=== PATIENT | female | born 1970 | race Caucasian/White ===

== ENCOUNTER → 2020-06-02 16:56 | Outpatient (CLI) | payer OTHER, SELFPAY ==
--- NOTE | ~2020-06-02 | MM_ITS ---
EXAMINATION: MM screening [facility] w gaye HISTORY: Screening TECHNIQUE: Craniocaudal and mediolateral oblique 3-D tomosynthesis images were obtained and synthetic 2-D images were generated. CAD analysis was submitted and interpreted. COMPARISON: Comparison to multiple prior studies sequentially, with oldest reviewed study dated 05/19. BREAST PARENCHYMAL COMPOSITION: There are scattered areas of fibroglandular density. FINDINGS: There is no evidence of suspicious mass, calcification, or architectural distortion to sugg est malignancy in either breast. There has been no suspicious interval change. IMPRESSION: 1. No mammographic evidence of malignancy. 2. Recommend routine screening mammography in one year. BI-RADS Category 1: Negative Reviewed, dictated and finalized at location A.
== END ==
PROVIDERS: PCP Family Medicine Adolescent Medicine; Visit Provider Nurse Practitioner Obstetrics & Gynecology
DX: Z12.31 Encounter for screening mammogram for malignant neoplasm of breast (principal)
CPT/HCPCS: 77063; 77067

== ENCOUNTER → 2021-09-01 15:54 | Outpatient (CLI) | payer OTHER, SELFPAY ==
--- NOTE | ~2021-09-01 | MM_ITS ---
EXAMINATION: MM screening [facility] w gaye HISTORY: Screening mammogram TECHNIQUE: Craniocaudal and mediolateral oblique 3-D tomosynthesis images were obtained and synthetic 2-D images were generated. CAD analysis was submitted and interpreted. COMPARISON: 06/02/2020 bilateral screening mammogram 05/07/2019 diagnostic left mammogram 04/18/2019, 09/27/2017 bilateral screening mammogram examinations BREAST PARENCHYMAL COMPOSITION: There are scattered areas of fibroglandular density. FINDINGS: There is no evidence of suspicious mass, calcification, or architectural distortion to sugg est malignancy in either breast. There has been no suspicious interval change. IMPRESSION: 1. No mammographic evidence of malignancy. 2. Recommend routine screening mammography in one year. BI-RADS Category 1: Negative Reviewed, dictated and finalized at location A. 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
== END ==
PROVIDERS: PCP Family Medicine Adolescent Medicine; Visit Provider Nurse Practitioner Obstetrics & Gynecology
DX: Z12.31 Encounter for screening mammogram for malignant neoplasm of breast (principal)
CPT/HCPCS: 77063; 77067

== ENCOUNTER → 2022-12-30 15:07 | Outpatient (CLI) | payer OTHER, SELFPAY ==
--- NOTE | ~2022-12-30 | MR_ITS ---
EXAMINATION: MR knee LT wo con DATE: 12/30/2022 15:42 INDICATION: Left knee meniscal tear with chronic medial left knee pain TECHNIQUE: Magnetic resonance imaging (MRI) of the left knee was performed without intravenous contra st. Sequences included coronal PD-weighted FSE, coronal PD-weighted FS FSE, sagittal T2-weighted FSE , sagittal PD-weighted FS FSE and axial PD weighted fat saturated FSE. COMPARISON: None. FINDINGS: Medial compartment: Complex medial meniscal tear with radial tear extending through the inner two thirds of the body of t he medial meniscus and with longitudinal horizontal tear extending to the intra-articular surface etelvina r the free edge of the posterior horn. Mild partial-thickness cartilage loss with some chondral surfa ce irregularity along the anterior to central weightbearing medial femoral condyle and anterior third of the medial tibial plateau. Lateral compartment: Complex lateral meniscal tear with tear plane extending to contact both the superior and inferior art icular surface at the meniscal body and with longitudinal oblique tear plane stenting across the domitila pheral inferior corner of the posterior body and lateral side of the posterior horn of the meniscus. Deep chondral ulceration with minimal underlying edema-like signal change along the posterior margin of the lateral tibial plateau. Patellofemoral compartment: Articular cartilage is normal. Ligaments and tendons: Anterior and posterior cruciate ligaments are normal. The medial collateral ligament and fibular salome ateral ligament complex are normal. The extensor mechanism is normal. The visualized medial and later al hamstring tendons as well as the iliotibial band are normal. Fluid: Small left knee joint effusion. No loose osteochondral bodies identified. Osseous/other: Bone alignment is normal. No fracture or pathologic marrow replacing process. IMPRESSION: 1. 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 Reviewed, dictated and finalized at location B.
== END ==
PROVIDERS: Visit Provider Physician Assistant
DX: S83.242A Other tear of medial meniscus, current injury, left knee, initial encounter (principal); X58.XXXA Exposure to other specified factors, initial encounter
CPT/HCPCS: 73721

== ENCOUNTER → 2023-01-06 09:54 | Outpatient (CLI) | payer OTHER, SELFPAY ==
--- NOTE | ~2023-01-06 | MM_ITS ---
EXAMINATION: MM screening [facility] BI w gaye HISTORY: Screening mammogram TECHNIQUE: Craniocaudal and mediolateral oblique 3-D tomosynthesis images were obtained and synthetic 2-D images were generated. CAD analysis was submitted and interpreted. COMPARISON: 09/01/2021, 06/02/2020, 05/07/2019, 04/18/2019 BREAST PARENCHYMAL COMPOSITION: There are scattered areas of fibroglandular density. FINDINGS: No suspicious mass, calcification, or architectural distortion are identified in either tin ast to suggest malignancy. There has been no suspicious interval change. IMPRESSION: 1. No mammographic evidence of malignancy. 2. Recommend routine screening mammography in one year. BI-RADS Category 1: Negative Reviewed, dictated and finalized at location A.
== END ==
PROVIDERS: PCP Family Medicine Adolescent Medicine; Visit Provider Nurse Practitioner Obstetrics & Gynecology
DX: Z12.31 Encounter for screening mammogram for malignant neoplasm of breast (principal)
CPT/HCPCS: 77063; 77067

== ENCOUNTER 2024-01-29 10:25 | Outpatient (CLI) | payer OTHER, SELFPAY ==
--- NOTE | ~2024-01-29 | MM_ITS ---
EXAMINATION: MM screening [facility] w gaye HISTORY: Screening TECHNIQUE: Craniocaudal and mediolateral oblique 3-D tomosynthesis images were obtained and synthetic 2-D images were generated. CAD analysis was submitted and interpreted. COMPARISON: Comparison to multiple prior studies sequentially, with oldest reviewed study dated 09/27. BREAST PARENCHYMAL COMPOSITION: Not dense: There are scattered areas of fibroglandular density. FINDINGS: There is no evidence of suspicious mass, calcification, or architectural distortion to sugg est malignancy in either breast. There has been no suspicious interval change. IMPRESSION: 1. No mammographic evidence of malignancy. 2. Recommend routine screening mammography in one year. BI-RADS Category 1: Negative Reviewed, dictated and finalized at location B.
== END 2024-01-29 10:26 ==
LOC: MICIMG 10:27
PROVIDERS: Visit Provider Nurse Practitioner Obstetrics & Gynecology
DX: Z12.31 Encounter for screening mammogram for malignant neoplasm of breast (principal)
CPT/HCPCS: 77063; 77067

== ENCOUNTER 2025-03-18 11:40 | Outpatient (CLI) | payer OTHER, SELFPAY ==
--- NOTE | ~2025-03-18 | MM_ITS ---
EXAMINATION: screening [facility] BI w gaye INDICATION: Asymptomatic, referred for screening mammogram COMPARISON: 01/29/2024 through 09/27/2017 TECHNIQUE: Digital Breast Tomosynthesis CC, MLO views of Both breasts were obtained with computer-ai ded detection to assist in interpretation of the study. FINDINGS: There are scattered areas of fibroglandular density. There is an asymmetry seen on the cc view in the Medial right breast at posterior depth, centered at 8 cm posterior to the nipple. Elsewhere, there are no mammographic features of malignancy. IMPRESSION: 1. Right breast Asymmetry. 2. No evidence of malignancy in the Left breast. RECOMMENDATION: Right breast Diagnostic mammogram with true lateral, appropriate spot compression views and an ultras ound if needed. BI-RADS Category 0: Incomplete: Needs additional imaging evaluation. Reviewed, dictated and finalized at location B. IMPRESSION: 1. Right breast Asymmetry. 2. No evidence of malignancy in the Left breast. RECOMMENDATION: Right breast Diagnostic mammogram with true lateral, appropriate spot compressi on views and an ultrasound if needed. BI-RADS Category 0: Incomplete: Needs additional imaging evaluation.
--- OUTSIDE RECORDS SUMMARY | 2025-03-18 11:44 | XMS_ITS | Data Portability ---
Author Organization [facility] [place] Address [address] [place] [address] Care Team Providers Care Grounds Person Name Role Phone ISRRAEL HESS Primary Care Provider WESLEY LEYVA Primary Care Provider Assessment Encounter Date Assessment Date Assessment LastModified by Organization Details LastModified Time 07/15/2020 07/15/2020 Annual gynecological exam performed. Patient will come back in a year unless there are new symptoms. [email or web address] Not available 07/15/2020 11:00:18 08/24/2021 08/24/2021 Annual gynecological exam performed. Patient will come back in a year unless there are new symptoms. Not available 08/24/2021 13:22:30 09/19/2022 09/19/2022 Annual gynecological exam performed. Patient will come back in a year unless there are new symptoms. Not available 09/19/2022 11:57:17 09/26/2023 09/26/2023 Annual gynecological exam performed. Patient will come back in a year unless there are new symptoms. [email or web address] Not available 09/26/2023 11:29:07 10/09/2024 10/09/2024 Annual gynecological exam performed. Patient will come back in a year unless there are new symptoms. Not available 10/04/2024 11:24:39 Plan of Treatment Reminders Order Date Submit Date Provider Last Modified By Organization Details Last Modified Time Details Appointments None recorded. Lab pap, IG + HR HPV - HPV regardless but if HPV is positive need subtyping 16,18/45 2024 025 [facility] (Lab), [address], [place], [address], 5 01:46:10 Referral None recorded. Procedures None recorded. Surgeries None recorded. Imaging MAMMO, screening, digital, bilateral 2024 025 [facility], [address], [facility] [address], [place], [address], 5 04:11:45 MAMMO, screening, bilateral [email or web address] [facility], [address], [facility] [address], [place], [address], 4 17:39:35 MAMMO, screening, bilateral 2022 023 [facility], [address], [facility], [place], [address], 3 15:01:48 Medication Orders estradiol 1 mg tablet 2024 025 [facility], [address] [place], [place], [id number], 5 09:21:30 estradiol 1 mg tablet [email or web address] [facility] #04737, [address] [place], [place], [id number], 3 12:20:13 estradiol 1 mg tablet 2020 021 [facility] #52246, [address], [place], [id number], 1 13:39:34 estradiol 1 mg tablet 2019 020 [facility] #00997, [address], [place], [place], [id number], 0 12:22:11 Patient TargetsNo targets recorded. Patient InstructionsNo instructions recorded. Reason for Referral None Reported. Results Created Date Observation Date Name Description Value Unit Range Abnormal Flag Note LastModifiedBy Organization Detail LastModifiedTime 07/15/20 20 07/20/2020 pap, LB Pap test thin prep Negati ve for Intrae pithel ial Lesion or Malign herman normal ACCES LUCY #: [id number] Sourc e: Cervi jess/E ndoce rvica l LMP: 08/28 Date Taken : 07/15 Speci men Type: ThinP rep Vial Date Repor anneliese: 07/20 Clini jess Data: Cytot ech: Georgie Macdonald CT (ASCP ) Date Repor anneliese: 07/19 Revie wed By: PORSHA Smith am( CP) Speci men Adequ acy: Satis facto ry for evalu ation Endoc ervic al/tr ansfo rmati on zone compo nent prese nt Gener al Categ oriza tion: NEGAT DARELL FOR INTRA EPITH ELIAL LESIO N OR MALIG VANESA This speci men has been ana zed by the ThinP rep Imagi ng Syste m, an inter activ e compu ter syste m which chloe ts the lab in the scree karel of ThinP rep Pap Test slide s. Follo wing imagi ng, the slide was revie wed by a Cytot echno logis t and/o r Patho logis t. D N A A S S A Y S R E P O R T TEST NAME RESUL TS ----- ---- ----- -- HPV High Risk Scree n (TMA) ThinP rep Vial The human papil lomav irus (HPV) High Risk Scree n is an FDA-a pprov ed in-vi tro ampli fied nucle ic acid test for the quali tativ e detec tion of E6/E7 viral mRNA. Resul ts shoul d be corre lated with patie nt prese ntati on, histo ry, cervi jess cytol ogy and other clini jess and labor atory findi ngs. See https ://[employer]/s ites/ defau lt/fi les 018-0 3/AW- 10094 _002_ 01.pd f for kavya zacarias n. Test perfo rmed by [facility], [address], [place] [address] , Edi Mesa ra, DO, [facility] tor. HPV High Risk *HPV NOT DETEC ANNELIESE (TYPE S 16, 18, 31, 33, 35, 39, 45, 51, 52, 56, 58, 59, 66, 68) *HPV: The human papil lomav irus (HPV) High Risk Joan payne is an FDA-a pprov ed in-vi tro ampli fied nucle ic acid test for the quali tativ e detec tion of E6/E7 viral mRNA. [facility] larissa d be corre lated with santi an prese ntati on, histo ry, cervi jess cytol ogy and other clini jess and labor atory findi ngs. See https ://[employer]/s ites/ defau lt/fi / 018-0 3/AW- 55288 _002_ 01.pd f for kavya zacarias n. Test perfo rmed by [facility], [address], [place] [address] , Edi Mesa ra, DO, [facility] tor. End of Repor t Techn ical servi álvaro provi ded by [facility] [facility], [address] [place] [address] Rodrigo Young MD, [facility]. Case revie wed and diagn osis rende red at [facility] [facility], [address] [place] [address] Rodrigo Young MD, Labor ge [facility] tor. CONFI DENTI AL Not Available [facility] ([facility]) [address], [place], [address], 07/20/2020 09:15:32 07/15/20 20 07/20/2020 HPV DNA, high- risk HPV high risk NOT DETECT ED normal Not Available [facility] ([facility]) [address], [place], [address], 07/20/2020 09:15:32 08/24/20 21 08/24/2021 IMAGE GUIDE D PAP AND HPV REGAR DLESS image guided Pap, HPV regardless of Pap result SEE RESULT S BELOW CASE REPOR T: Cytol ogy Gynec ologi jess Repor t Case: [id number] Autho lazaro ike Provi mari: Everardo Wayne Colle cted: 08/24 1657 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 FINAL DIAGN OSIS: Negat darell for Intra epith elial Lesthai n or Angel miller (NIL) . Shift in kostas sugge stive of bacte rial vagin osis. Elect shane sevilla d by Mary Keita, CT on 022 at 12:25 PM ----- ----- ----- ----- ----- ----- ----- ----- ----- ----- ----- ----- ----- ----- ----- ----- ----- ---- HPV RESUL TS: HPV mRNA E6/E7 : No HPV mRNA Detec anneliese NOTE: This high risk HPV mRNA assay detec ts fourt een high- risk HPV types (16, 18, 31, 33, 35, 39, 45, 51, 52, 56, 58, 59, 66, 68) witho ut diffe renti ation . COMME NT: Note: This speci men was revie wed by a Cytot echno logis t and/o r Patho logis t (as indic ated in this repor t) after evalu ation using the Thinp rep Imagi ng Syste m. CLINI JESS INFOR MATIO N: Menst rual Statu s: LMP (if appli cable ): Clini jess Histo ry/Pr eviou s Pap: Type of Neopl wilmer (if appli cable ): Signi fican t Clini jess Findi ngs: Other Histo ry: Hormo chao (if appli cable ): PAP EDUCA ZACH L NOTE: The Pap Test is a scree karel test with an inher ent false negat darell rate. Liqui d-bas e sampl ing may decre ase, but will not elimi macario, false negat darell resul ts. A negat darell resul t does not precl ude the prese nce and/o r devel opmen t of disea se, since the prese nce of abnor mal cells in the sampl e depen ds on the locat ion of the lesio n and sampl ing techn ique. Olivia nued regul ar scree karel is the best metho d of cance r preve ntion . If repor anneliese cytol ogic findi ng do not corre late with physi jess and/o r histo rical findi ngs, furth er inves tigat ion is recom stan d, as clini malinda keyes nted. 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 The absen ce of an endoc ervic al compo nent was confi rmed by an addit ional joan diana. FINAL DIAGN OSIS: Negat darell for Intra epith elial Lesthai payne or Angel miller (NIL) . Funga l organ isms morph ologi malinda consi stent with Xiomy da spp. Elect shane baldwin roel d by Cliff Knight on 2022 at 1:19 PM ----- ----- ----- ----- ----- ----- ----- ----- ----- ----- ----- ----- ----- ----- ----- ----- ----- ---- HPV RESUL TS: HPV mRNA E6/E7 : No HPV mRNA Detec anneliese NOTE: This high risk HPV mRNA assay detec ts fourt een high- risk HPV types (16, 18, 31, 33, 35, 39, 45, 51, 52, 56, 58, 59, 66, 68) witho ut diffe renti ation . COMME NT: Note: This speci men was revie wed by a Cytot echno logis t and/o r Patho logis t (as indic ated in this repor t) after evalu ation using the Thinp rep Imagi ng Syste m. CLINI JESS INFOR MATIO N: Menst rual Statu s: LMP (if appli cable ): Clini jess Histo ry/Pr eviou s Pap: Type of Neopl wilmer (if appli cable ): Signi fican t Clini jess Findi ngs: Other Histo ry: Hormo chao (if appli cable ): PAP EDUCA ZACH L NOTE: The Pap Test is a scree karel test with an inher ent false negat darell rate. Liqui d-bas ed sampl ing may decre ase, but will not elimi macario, false negat darell resul ts. A negat darell resul t does not precl ude the prese nce and/o r devel opmen t of disea se, since the prese nce of abnor mal cells in the sampl e depen ds on the locat ion of the lesio n and sampl ing techn ique. Olivia nued regul ar scree karel is the best metho d of cance r preve ntion . If repor anneliese cytol ogic findi ng do not corre late with physi jess and/o r histo rical findi ngs, furth er inves tigat ion is recom stan d, as clini malinda warra nted. Not Available [facility] (Lab) [address], [place], [address], 09/22/2022 14:21:42 09/19/19 23 09/19/2022 CT/GC (MIRA) , THINP REP VIAL chlamydia trachomatis, PCR NEGATI VE negati ve Not Available [facility] (Lab) [address] [place], [address], 09/22/2022 14:21:43 09/19/19 23 09/19/2022 CT/GC (MIRA) , THINP REP VIAL neisseria gonorrhoeae, PCR NEGATI VE negati ve Not Available [facility] (Lab) [address] [place], [address], 09/22/2022 14:21:43 09/19/19 23 09/19/2022 TRICH OMONA S VAGIN ANNA (RRNA ) trichomonas vaginalis ribosomal RNA (rrna) NEGATI VE negati ve Not Available [facility] (Lab) [address] [facility], [place], [address], 09/22/2022 14:21:43 09/26/19 24 09/26/2023 IMAGE GUIDE D PAP AND HPV REGAR DLESS image guided Pap, HPV regardless of Pap result SEE RESULT S BELOW CASE REPOR T: Cytol ogy Gynec ologi jess Repor t Case: [id number] Autho lazaro ramires Provi mari: Everardo Wayne Colle cted: 09/26 1617 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 Elect shane baldwin roel d by Anaya Garcia, CT on 024 at 10:09 AM ----- ----- ----- ----- ----- ----- ----- ----- ----- ----- ----- ----- ----- ----- ----- ----- ----- ---- HPV RESUL TS: HPV mRNA E6/E7 : No HPV mRNA Detec anneliese NOTE: This high risk HPV mRNA assay detec ts fourt een high- risk HPV types (16, 18, 31, 33, 35, 39, 45, 51, 52, 56, 58, 59, 66, 68) witho ut diffe renti ation . COMME NT: This speci men was revie wed by a Cytot echno logis t and/o r Patho logis t (as indic ated in this repor t) after evalu ation using the Thinp rep Imagi ng Syste m. CLINI JESS INFOR MATIO N: Menst rual Statu s: LMP (if appli cable ): Clini jess Histo ry/Pr eviou s Pap: Type of Neopl wilmer (if appli cable ): Signi fican t Clini jess Findi ngs: Other Histo ry: Hormo chao (if appli cable ): PAP EDUCA ZACH L NOTE: The Pap Test is a scree karel test with an inher ent false negat darell rate. Liqui d-bas ed sampl ing may decre ase, but will not elimi macario, false negat darell resul ts. A negat darell resul t does not precl ude the prese nce and/o r devel opmen t of disea se, since the prese nce of abnor mal cells in the sampl e depen ds on the locat ion of the lesio n and sampl ing techn ique. Olivia nued regul ar scree karel is the best metho d of cance r preve ntion . If repor anneliese cytol ogic findi ng do not corre late with physi jess and/o r histo rical findi ngs, furth er inves tigat ion is recom stan d, as clini malinda warrquintin nted. Not Available [facility] (Lab) [address] [facility], [place], [address], 09/28/2023 11:12:45 10/09/19 25 10/09/2024 IMAGE GUIDE D PAP AND HPV REGAR DLESS image guided Pap, HPV regardless of Pap result SEE RESULT S BELOW abnormal CASE REPOR T: Cytol ogy Gynec ologi jess Repor t Case: [id number] Autho lazaro g Provi mari: Dermo dy, Mary Beth , ANP, FUN HOUSE OPERATOR Colle cted: 10/09 0842 Order ing Locat ion: [place] Patho logy Recei stephanie: 10/10 0147 First Scree n: Michael Ortiz , CT Patho logis t: Davi carreon , Marlene Leonard MD Speci men: Scree karel Pap - Image d, Cervi x STATE MENT OF ADEQU ACY: Satis facto ry for evalu ation Trans forma tion zone compo nent prese nt ----- ----- ----- ----- ----- ----- ----- ----- ----- ----- ----- ----- ----- ----- ----- ----- ----- ---- FINAL DIAGN OSIS: Epith elial Cell Abnor malit y, Squam ous Cell: Atypi jess Squam ous Cells of Undet ermin ed Deya montgomery (ASC- [place]). Elect shane gunderson by Marlene carreon MD on 2024 at 1312 ROTOR CASTING MACHINE OPERATOR ----- ----- ----- ----- ----- ----- ----- ----- ----- ----- ----- ----- ----- ----- ----- ----- ----- ---- HPV RESUL TS: HPV mRNA E6/E7 : No HPV mRNA Detec anneliese NOTE: This high risk HPV mRNA assay detec ts fourt een high- risk HPV types (16, 18, 31, 33, 35, 39, 45, 51, 52, 56, 58, 59, 66, 68) witho ut diffe renti ation . COMME NT: This speci men was revie wed by a Cytot echno logis t and/o r Patho logis t (as indic ated in this repor t) after evalu ation using the Thinp rep Imagi ng Syste m. CLINI JESS INFOR MATIO N: Menst rual Statu s: LMP (if appli cable ): Clini jess Histo ry/Pr eviou s Pap: Type of Neopl wilmer (if appli cable ): Deya underwood Clini jess Findi ngs: Other Histo ry: Hormo chao (if appli cable ): ADY ALLEN FOLLO W-UP: Follo w up as hemalathaa nted, based on curre nt guide lines and indiv idual patie nt consi derat ions. Not Available [facility] (Lab) [address], [place], [address], 10/15/2024 01:46:10 09/02/19 22 09/01/2021 MAMMO , scree karel, bilat eral No observ ation record ed. [facility] [address], [place], [address], 09/08/2021 14:46:05 01/07/20 23 01/06/2023 MAMMO , scree karel, bilat eral No observ ation record ed. [email or web address] [facility] [address], [place], [address], 09/26/2023 11:52:30 01/29/20 24 01/29/2024 MAMMO , scree karel, bilat eral No observ ation record ed. [facility] [address], [place], [address], 10/15/2024 11:53:35 Result Notes None recorded. Problems Name Problem SNOMED Code Status Onset Date Resolution Date Notes Provider Name and Address Organization Details Recorded Time Screenin g for malignan t neoplasm of cervix Completed 201208/23/2021 Screening for malignant neoplasms of the cervix;Re corded Elsewhere : No Locati on: [facility] So urce: EHR Chron ic: N Practic e ID: 0001 Bill able Time: 04:45:00 PM Annika Sandoval [facility] 19:29:27 Uses oral contrace ption [id number] Completed 201208/23/2021 Surveilla nce of contracep tive pill;Mike rded Elsewhere : No Locati on: [facility] So urce: EHR Chron ic: N Practic e ID: 0001 Bill able Time: 04:15:00 PM Annika Sandoval [facility] 19:29:17 [facility] medical examinat ion Completed 201308/23/2021 Gynecolog ical Examinati on;Record ed Elsewhere : No Locati on: [facility] So urce: EHR Chron ic: N Practic e ID: 0001 Bill able Time: 03:00:00 PM Annika Sandoval [facility] 19:30:22 Adult health examinat ion Completed 201308/23/2021 ROUTINE MEDICAL EXAM;Mike rded Elsewhere : No Locati on: [facility] So urce: EHR Chron ic: N Practic e ID: 0001 Bill able Time: 03:00:00 PM Annika Sandoval [facility] 19:28:23 Vaginiti s and vulvovag initis Completed 201408/23/2021 Vaginitis ;Recorded Elsewhere : No Locati on: [facility] So urce: EHR Chron ic: N Practic e ID: 0001 Bill able Time: 10:00:00 AM Annika Sandoval [facility] 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 19:29:41 Finding of menstrua l bleeding Completed 201508/23/2021 Menorrhag ia;Record ed Elsewhere : No Locati on: [facility] So urce: EHR Chron ic: N Practic e ID: 0001 Bill able Time: 09:00:00 AM Annika Sandoval [facility] 19:28:56 Clinical finding Completed 201508/23/2021 Presence of (intraute rine) contracep tive device;Re corded Elsewhere : No Locati on: [facility] So urce: EHR Chron ic: N Practic e ID: 0001 Bill able Time: 09:30:00 AM Annika Sandoval [facility] 19:28:37 Contrace ptive sheath status [id number] Completed 201508/23/2021 Encounter for routine checking of intrauter ine contracep dev;Pract ice ID: 0001 Annika Sandoval [facility] 19:28:42 Disorder of intraute rine contrace ptive device Completed 201508/23/2021 [facility] compl of intrauter ine contracep tive device, init encntr;Pr actice ID: 0001 Annika Sandoval [facility] 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 19:30:07 Screenin g for malignan t neoplasm of rectum Completed 201508/23/2021 Encounter for screening for malignant neoplasm of rectum;Pr actice ID: 0001 Annika Sandoval [facility] 19:29:32 Body mass index 30+ - obesity [id number] Completed 201708/23/2021 Body mass index (BMI) 36.0-36.9 , adult;Rec orded Elsewhere : No Locati on: [facility] So urce: EHR Chron ic: N Practic e ID: 0001 Bill able Time: 01:30:00 PM Annika milligan [facility] 19:28:[address] Concept Completed 201708/23/2021 Encntr for general adult medical exam w/o abnormal findings; Recorded Elsewhere : No Locati on: [facility] So urce: EHR Chron ic: N Practic e ID: 0001 Bill able Time: 01:30:00 PM Annika Sandoval [facility] 19:29:36 Human papillom avirus deoxyrib onucleic acid detected , high risk on cervical specimen [id number] Completed 201808/23/2021 Cervical high risk HPV DNA test positive; Practice ID: 0001 Annika Sandoval [facility] 19:29:01 Insertio n of intraute rine contrace ptive device Completed 201808/23/2021 Encounter for insertion of intrauter ine contracep tive device;Pr actice ID: 0001 Annika [facility] 19:29:09 Pregnanc y test negative [id number] Completed 201808/23/2021 Encounter for test, result negative; Practice ID: 0001 Annika [facility] 19:29:21 Hypertro phy of uterus [id number] Completed 201808/23/2021 Hypertrop hy of uterus;Pr actice ID: 0001 Annika [facility] 19:29:05 Atypical squamous cells of undeterm ined signific ance on cervical Papanico laou smear [id number] Completed 201808/23/2021 Atyp squam cell of undet signfc cyto smr crvx (ASC-US); Recorded Elsewhere : No Locati on: [facility] So urce: EHR Chron ic: N Practic e ID: 0001 Bill able Time: 12:29:54 PM Annikamark Sandoval [facility] 19:28:28 Uterine leiomyom a [id number] Completed 201808/23/2021 Leiomyoma of uterus, unspecifi ed;Practi ce ID: 0001 Annika [facility] 19:30:11 Menopaus e present [id number] Completed 201808/23/2021 Menopausa l and female climacter ic states;Pr actice ID: 0001 Annika Sandoval [facility] 19:29:13 Elevated blood-pr essure reading without diagnosi s of hyperten lucy [id number] Completed 201808/23/2021 Elevated blood-pre ssure reading, w/o diagnosis of htn;Pract ice ID: 0001 Annika Sandoval [facility] 19:28:51 Problem Notes None recorded. Procedures Surgical History Date Name Laterality Status Provider Name and Address Organization Details Recorded Time 01/29/20 24 Date of Last Mammogram completed [facility] 10/04/2024 11:26:15 09/26/19 24 Date of Last Pap Smear completed [facility] 10/04/2024 11:25:39 05/06/20 19 Colposcopy completed [facility] 08/24/2021 11:57:44 04/05/20 19 Colposcopy completed [facility] 08/24/2021 13:23:30 08/28/19 16 Hysteroscopy completed [facility] 06/20/2020 10:05:04 08/28/19 11 Laparoscopy completed Veronika [facility] 06/20/2020 10:04:34 colonoscopy completed Nirmala Brady [facility]- [address], [place], [address], [facility] 09/19/2022 12:13:22 Imaging Results None recorded. Procedure Notes None recorded. Medical Equipment None Reported. Allergies No known drug allergies Medications Name Sig Start Date Stop Date Status Note LastModified by Organization Details LastModified Time celecoxib 200 mg capsule 09/26 completed Not Available Not Available Not Available amoxicill in 500 mg capsule TAKE 1 CAPSULE BY MOUTH THREE TIMES A DAY FOR 10 DAYS 10/04 completed Not Available Not Available Not Available Mirena 21 mcg/24 hr (up to 8 years) 52 mg intrauter ine device 2017 active Prescrib ed Elsewher e: Yes Loca tion: Zuly booth [facility] M odify By: trinidad melounter DateTime : 11/22/19 18 01:30:00 PM Not Available Not Available Not Available fluconazo le 150 mg tablet TAKE 1 TABLET BY MOUTH 1 TIME 09/26 completed Not Available Not Available Not Available hydrocodo ne 5 mg-acetam inophen 325 mg tablet 09/26 completed Not Available Not Available Not Available ondansetr on HCl 4 mg tablet 09/26 completed Not Available Not Available Not Available prednison e 20 mg tablet 09/26 completed Not Available Not Available Not Available metronida zole 500 mg tablet 09/26 completed Not Available Not Available Not Available phentermi ne 37.5 mg tablet TAKE 1 TABLET BY MOUTH ONCE DAILY 09/26 completed Not Available Not Available Not Available Vitamin C 500 mg chewable tablet 09/26 completed Not Available Not Available Not Available sulfameth oxazole 800 mg-trimet hoprim 160 mg tablet TAKE 1 TABLET BY MOUTH TWICE A DAY FOR 10 DAYS 10/04 completed Not Available Not Available Not Available aspirin 81 mg tablet,de layed release 09/26 completed Not Available Not Available Not Available alprazola m 0.5 mg tablet TAKE 1 TABLET (0.5 MG TOTAL) BY MOUTH 2 (TWO) TIMES A DAY NEEDED FOR ANXIETY. active Not Available Not Available No t Available Metrogel Vaginal 0.75 % (37.5 mg/5 gram) insert 1 applicat orful by vaginal route for 5 nights at bedtime 11/21 completed Prescrib ed Elsewher e: No Locat ion: [facility] odify By: trinidad Booth ncountneyda DateTime : 08/11/20 16 03:27:01 PM Not Available Not Available Not Available estradiol 1 mg tablet take 1 tablet daily 2024 active Not Available Not Available Not Avai lable sulfaceta mide sodium 10 % eye drops 08/24 completed Not Available Not Available Not Available polymyxin B sulfate 10,000 unit-trim ethoprim 1 mg/mL eye drops INSTILL 1 DROP IN BOTH EYES EVERY 4 HOURS WHILE AWAKE FOR 7 DAYS 09/26 completed Not Available Not Available Not Available Sleep Aid (diphenhy dramine) 50 mg capsule take 1 capsule by oral route every day at bedtime as needed 10/13 completed Prescrib ed Elsewher e: Yes Loca tion: [facility] odify By: trinidad Booth ncounter DateTime : 09/06/19 13 04:45:00 PM Not Available Not Available Not Available ergocalci ferol (vitamin D2) 1,250 mcg (50,000 unit) capsule TAKE 1 CAPSULE BY MOUTH 1 TIME A WEEK active Not Available Not Available No t Available Ambien 5 mg tablet 08/24 completed Not Available Not Available Not Available Xanax 1 mg tablet 09/19 completed Not Available Not Available Not Available Ortho Tri-Cycle n (28) 0.18 mg(7)/0.2 15mg(7)/0 .25 mg(7)-0.0 35 mg tablet TAKE 1 TABLET BY ORAL ROUTE EVERY DAY 10/12 completed Prescrib ed Elsewher e: No Locat ion: [facility] odify By: amknancy Booth ncounter DateTime : 07/16/20 08:30:00 AM Not Available Not Available Not Available amoxicill in 875 mg-potass ium clavulana te 125 mg tablet TAKE 1 TABLET BY MOUTH TWICE DAILY FOR 10 DAYS 09/26 completed Not Available Not Available Not Available zolpidem ER 12.5 mg tablet,ex tended release,m ultiphase TAKE 1 TABLET BY MOUTH NIGHTLY. active Not Available Not Available No t Available Ambien 08/24 completed Not Available Not Available Not Available Xanax 08/24 completed Not Available Not Available Not Available Vitamin D3 50 mcg (2,000 unit) capsule 09/26 completed Not Available Not Available Not Available desoximet asone 0.25 % topical spray APPLY TOPICALL Y TO THE AFFECTED AREA TWICE DAILY NEEDED FOR ECZEMA. RUB IN GENTLY AND COMPLETE LY 01/23 /2023 completed Not Available Not Available Not Available Stimulant Laxative Plus 8.6 mg-50 mg tablet 09/26 completed Not Available Not Available Not Available Mounjaro 7.5 mg/0.5 mL subcutane ous pen injector INJECT 7.5 MG UNDER THE SKIN EVERY WEEK FOR 4 WEEKS. THEN START 10 MG FOR 4 WEEKS 09/19 completed Not Available Not Available Not Available Mounjaro 5 mg/0.5 mL subcutane ous pen injector 09/19 completed Not Available Not Available Not Available Mounjaro 2.5 mg/0.5 mL subcutane ous pen injector INJECT 2.5MG UNDER THE SKIN ONCE A WEEK DIRECTED . 09/19 completed Not Available Not Available Not Available Zepbound 10 mg/0.5 mL subcutane ous pen injector INJECT 0.5 ML (10 MG TOTAL) UNDER THE SKIN EVERY 7 DAYS 10/04 completed Not Available Not Available Not Available Zepbound 2.5 mg/0.5 mL subcutane ous pen injector 09/26 completed Not Available Not Available Not Available Zepbound 12.5 mg/0.5 mL subcutane ous pen injector ADMINIST ER 12.5 MG UNDER THE SKIN EVERY 7 DAYS active Not Available Not Available No t Available Zepbound 7.5 mg/0.5 mL subcutane ous pen injector INJECT 7.5MG SUBCUTAN EOUSLY ONCE WEEKLY 10/04 completed Not Available Not Available Not Available Vitals Date Recorded Systolic And Diastolic Provider Name and Address Organization Details Last Updated DateTime 09/19/2022 120/74 mm[Hg] Nirmala Brady, [facility]- [address], [place], [address], [facility] 09/19/2022 12:12:05 Date Recorded Body weight Provider Name an d Address Organization Details Last Updated DateTime 09/19/2022 [id number] ike Burris [facility] 09/19/2022 11:57:30 Date Recorded Body height Body mass index (BMI) Body weight Systolic And Diastolic Provider Name and Address Organization Details Last Updated DateTime 09/26/2023 162.56 cm 39.5 kg/m2 077679.25 g 133/88 mm[Hg] Olinda John [facility] 09/26/2023 11:29:30 Date Recorded Body height Body mass index (BMI) Body weight Systolic And Diastolic Provider Name and Address Organization Details Last Updated DateTime 10/09/2024 162.56 cm 27.7 kg/m2 05927.81 g 136/85 mm[Hg] Missy Langley [facility] 10/09/2024 09:12:52 Date Recorded Systolic And Diastolic Provider Name and Address Organization Details Last Updated DateTime 07/15/2020 128/70 mm[Hg] Nirmala Brady, [facility] [address], [place], [address], [facility] 07/15/2020 12:13:47 Date Recorded Body height Body mass index (BMI) Body weight Provider Name and Address Organization Details Last Updated DateTime 07/15/2020 162.56 cm 34.5 kg/m2 21999.07 g Irina Riddle [facility] 07/15/2020 11:06:55 Date Recorded Systolic And Diastolic Provider Name and Address Organization Details Last Updated DateTime 08/24/2021 122/80 mm[Hg] Nirmala Brady, [facility] [address], [place], [address], [facility] 08/24/2021 13:48:10 Date Recorded Body height Body mass index (BMI) Body weight Provider Name and Address Organization Details Last Updated DateTime 08/24/2021 162.56 cm 36.6 kg/m2 61179.17 g Annika Sandoval [facility] 08/24/2021 13:23:02 Social History Question Answer Notes LastModified by Organizat ion Details LastModified Time Tobacco Smoking Status Former Smoker Annika milligan [facility] 09/19/2022 11:57:45 Do You Have An Advance Directive? No [email or web address] Information n ot available 08/24/2021 Are You Blind Or Do You Have Difficulty Seeing? No Information n ot available 08/23/2021 What Is Your Level Of Caffeine Consumption? Moderate Information not available 08/24/2021 How Much Tobacco Do You Chew? None Information not available 08/24/2021 In The 14 Days Before Symptom Onset, Have You Had Close Contact With A Laboratory-confirm ed COVID-19 While That Case Was Ill? No Information n ot available 09/19/2022 In The 14 Days Before Symptom Onset, Have You Had Close Contact With A Person Who Is Under Investigation For COVID-19 While That Person Was Ill? No Information not available 08/24/2021 Have You Been To An Area Known To Be High Risk For COVID-19? No Information not available 08/24/2021 Are You Deaf Or Do You Have Serious Difficulty Hearing? No Information not available 08/23/2021 What Type Of Diet Are You Following? REGULAR Information n ot available 08/23/2021 What Is The Highest Grade Or Level Of School You Have Completed Or The Highest Degree You Have Received? [id number] Information not available 08/24/2021 Are There Any Guns Present In Your Home? Yes Information not available 08/24/2021 Do You Use Protection During Sex? Always Information not available 08/24/2021 Do You Use Your Seat Belt Or Car Seat Routinely? No Information not available 08/24/2021 Do You Have Smoke And Carbon Monoxide Detectors In Your Home? Yes Information not available 08/23/2021 How Much Tobacco Do You Smoke? No Information not available 08/24/2021 Do You Use Sunscreen Routinely? Yes Information not available 08/23/2021 Have You Used IV Drugs? No Information not available 08/24/2021 Do You Have Difficulty Walking Or Climbing Stairs? No Information not available 09/19/2022 Sex: Unknown Functional Status Question Answer Note LastModified by Organizat ion Details LastModified Time Do you use any illicit or recreational drugs? No Information not available 08/24/2021 What is your level of alcohol consumption? Occasional Information not available 08/23/2021 Are you able to walk? YESWOREST Information not available 08/23/2021 Are you able to care for yourself? 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 No Information not available 09/19/2022 What is your exercise level? Moderate Information not available 08/23/2021 Mental Status Question Answer Note LastModified by Organization D etails LastModified Time Do you feel stressed (tense, restless, nervous, or anxious, or unable to sleep at night)? [id number] Information not available 08/23/2021 Family History Relationship Description Onset Age of this Age Resolved Age Notes LastModified by Organization Details LastModified Time Maternal Grandfather Hypertensive disorder [email or web address] Not available 06/20 10:03:17 Maternal Grandmother Malignant tumor of breast [email or web address] Not available 06/20 10:03:26 Paternal Grandmother Malignant neoplasm of lung [id number] Not available 06/20 10:03:37 Medical History Condition Response Anxiety Disorder Y History of STI Y History of abnormal pap Y Gynecological History Statement/Question Response Abnormal Pap Y Date of Last Mammogram 01/29/2024 HPV Vaccine N Colposcopy 05/06/2019 Current Control Method IUD Date of Last Colonoscopy Sexually Active? N Menses Monthly N Age of first menstrual cycle 13 Date of Last Pap Smear 09/26/2023 Sexual Problems? N LMP Unknown Obstetrics History GPAL:G 0 P 0 0 0 0 Type Value Living 0 Total 0 Past Encounters Encounter ID Performer Location Encounter Start Date Encounter Closed Date Diagnosis/Indication Diagnosis SNOMED-CT Code Diagnosis ICD10 Code Diagnosis Note [id number] Nirmala Brady [facility] [address] [address] 07/15/2020 10:54:51 07/15/2020 13:53:59 Gynecologic examination 07643473 Z01.419 Suggested Calcium with Vitamin D 1200-1500m g daily. Patient advised to get an annual flu shot in the fall and she could obtain at [facility] or [facility]. Also to obtain TDap vaccinatio n if you have not had one in the last 10 years. Recommend yearly mammograms . Encouraged monthly self breast exams. Encourage safe sexual practices, to use condoms and limit partners if not already in a monogamous relationsh ip. Engage in daily exercise of low impact aerobic exercise 45-60 minutes 4-5 times weekly. Avoid tobacco and illicit drugs as well as using moderation with alcohol intake less than 1-2 8 oz beverages daily. This lifestyle behavior pattern will lead to less health conditions and longer life span. If BMI greater than 25 weight watchers or dietary consult advised. All questions have been answered. Patient appears to understand informatio n, but if you have any questions please call or respond to this email. Pap hx abn Updated pap/hpv this year Doing well no issues. IUD check 038292612 Z30. 431 Strings visualized . Placed . Menopausal symptom 27130 002 N95.1 On estradiol 1mg daily with IUD mirena for uterine lining protection for hot flashes. [id number] Nirmala Brady , [facility] [address] [address] 08/24/2021 13:12:54 08/24/2021 13:58:57 Gynecologic examination 08789908 Z01.419 Suggested Calcium with Vitamin D 1200-1500m g daily. Patient advised to get an annual flu shot in the fall and she could obtain at [facility] or [facility]. Also to obtain TDap vaccinatio n if you have not had one in the last 10 years. Recommend yearly mammograms . Encouraged monthly self breast exams. Encourage safe sexual practices, to use condoms and limit partners if not already in a monogamous relationsh ip. Engage in daily exercise of low impact aerobic exercise 45-60 minutes 4-5 times weekly. Avoid tobacco and illicit drugs as well as using moderation with alcohol intake less than 1-2 8 oz beverages daily. This lifestyle behavior pattern will lead to less health conditions and longer life span. If BMI greater than 25 weight watchers or dietary consult advised. All questions have been answered. Patient appears to understand informatio n, but if you have any questions please call or respond to this email. Pap hx abn Updated pap/hpv this year Doing well no issues.Dec lined need std screen Not in a relationsh ip & not SA Colon screen UTD Mammo ordered Menopausal symptom 08793 002 N95.1 On estradiol 1mg daily with IUD mirena for uterine lining protection for hot flashes. [id number] Nirmala Brady [facility] [address] [address] 09/19/2022 11:37:45 09/19/2022 12:22:59 Gynecologic examination [id number] Z01.419 Z11.51 Suggested Calcium with Vitamin D 1200-1500m g daily. Patient advised to get an annual flu shot in the fall and she could obtain at [facility] or [facility] clinic. Also to obtain TDap vaccinatio n if you have not had one in the last 10 years. Recommend yearly mammograms . Encouraged monthly self breast exams. Encourage safe sexual practices, to use condoms and limit partners if not already in a monogamous relationsh ip. Engage in daily exercise of low impact aerobic exercise 45-60 minutes 4-5 times weekly. Avoid tobacco and illicit drugs as well as using moderation with alcohol intake less than 1-2 8 oz beverages daily. This lifestyle behavior pattern will lead to less health conditions and longer life span. If BMI greater than 25 weight watchers or dietary consult advised. All questions have been answered. Patient appears to understand informatio n, but if you have any questions please call or respond to this email.Pap/ hpv sentSTD Screen sentGeneti c Screen discussedC olon Screen-PCP Dexa Screen -naRoutine Labs-PCPMa mmo- ordered A Mirena IUD prevents for up to 8 years, and also helps with heavy periods for up to 5 years in women who choose an IUD for control. Menopausal symptom 25658 002 N95.1 On estradiol 1mg daily with IUD mirena for uterine lining protection for hot flashes. Screening mammography 24 042841 Z12.31 [id number] Nirmala Brady [facility] [address] [address] 09/26/2023 11:22:19 09/26/2023 12:03:11 Gynecologic examination [id number] Z01.419 Z11.51 Suggested Calcium with Vitamin D 1200-1500m g daily. Patient advised to get an annual flu shot in the fall and she could obtain at [facility] or [facility] clinic. Also to obtain TDap vaccinatio n if you have not had one in the last 10 years. Recommend yearly mammograms . Encouraged monthly self breast exams. Encourage safe sexual practices, to use condoms and limit partners if not already in a monogamous relationsh ip. Engage in daily exercise of low impact aerobic exercise 45-60 minutes 4-5 times weekly. Avoid tobacco and illicit drugs as well as using moderation with alcohol intake less than 1-2 8 oz beverages daily. This lifestyle behavior pattern will lead to less health conditions and longer life span. If BMI greater than 25 weight watchers or dietary consult advised. All questions have been answered. Patient appears to understand informatio n, but if you have any questions please call or respond to this email.Pap/ hpv sentSTD Screen declinedGe netic Screen discussedC olon Screen-PCP Dexa Screen -naRoutine Labs-PCPMa mmo- ordered A Mirena IUD prevents for up to 8 years, and also helps with heavy periods for up to 5 years in women who choose an IUD for control. Screening mammography 24 481211 Z12.31 [id number] Justus Gillis MD [place] [address] [address] 10/09/2024 09:03:59 10/09/2024 09:29:11 Gynecologic examination [id number] Z01.419 Annual gynecologi jess exam performed. Patient will come back in a year unless there are new symptoms. Suggest Calcium with Vitamin D if not eating in diet. Patient advised to get annual flu shot. Recommend yearly physicals and perform monthly breast exams. Genetic testing is available for patients with family history of cancer. Engage in safe sexual practices, use condoms. Encouraged to have daily exercise. Avoid tobacco and illicit drugs, moderation of alcohol. If BMI greater than 25 dietary consult advised. If you have any questions please call or email. mammogram- UTD 2023; order given, pt to schedule colon cancer screening - UTD DEXA scan- n/a Pap smear- pap w/ HPV collected laboratory evaluation - PCP STI testing - declined Screening mammography 24 178083 Z12.31 Menopausal symptom 56463 002 N95.1 Patient doing well on estradiol 1 mg tablet PO daily for vasomotor sx. R/B/AEs reviewed.R efills sent x 1 year.Santi nt has Mirena IUD for endometria l protection , strings visualized . Pt aware IUD expires 04/05/2027 and will need removed by that time. Health Concerns Section Related Observation LastModified by Organization Detai ls LastModified Time None Recorded Concern Status LastModified by Organization Details LastModified Time None Recorded Advance Directives Directive N: Payers Insurance Date Sequence Insurance Name Policy Number Policy Muller Covered Member ID Muller Member ID Guarantor Name 08/13/2020 1 *SELF PAY* Halie Villanueva 10/06/2024 1 [facility] [id number] Yessy M Kay [id number] Yessy Villanueva Notes Date Note Type Note Provider Name and Address Organization Details Recorded Time 07/15/2020 text/html Annual GYNReport ed bypatient.History: no gynecologic complaints Menstrual cycle:Normal menses Urinary symptoms:No hematuria; No incontinence Vulva:No genital lesion Vagina:Normal vaginal discharge Breast:No breast pain; No breast lump; No nipple discharge Current Contraception:Not sexually active Sexual complaints:No sexual complaints; No pain during intercourse; Normal libido Menopausal Symptoms:No menopausal symptoms; Normal vaginal lubrication Psychological symptoms:No depression; No anxiety; No PMDD Preventive measures:Encourage self breast examination; Encourage regular exercise; Encourage no tobacco use; Encourage regular mammograms starting age 40; History of abnormal pap smear/cervical dysplasia Nirmala Brady, [facility] [address], [place], [address], [facility] 07/15/2020 12:22:28 08/24/2021 text/html Annual GYNReport ed bypatient.History: no gynecologic complaints Menstrual cycle:Normal menses (Amenorrheic on IUD) Urinary symptoms:No hematuria; No incontinence Vulva:No genital lesion Vagina:Normal vaginal discharge Breast:No breast pain; No breast lump; No nipple discharge Current Contraception:Intr auterine device (iud); Not sexually active Sexual complaints:No sexual complaints; No pain during intercourse; Normal libido Menopausal Symptoms:No menopausal symptoms; Normal vaginal lubrication Psychological symptoms:No depression; No anxiety; No PMDD Preventive measures:Encourage self breast examination; Encourage regular exercise; Encourage no tobacco use; Encourage regular mammograms starting age 40; History of abnormal pap smear/cervical dysplasia; Needs to schedule mammogram; Up to date on colonoscopy screening [facility] [address], [place], [address], [facility] 08/24/2021 13:49:21 09/19/2022 text/html Annual GYNReport ed bypatient.History: no gynecologic complaints Menstrual cycle:Normal menses (Amenorrheic on IUD mirena) Urinary symptoms:No hematuria; No incontinence Vulva:No genital lesion Vagina:Normal vaginal discharge Breast:No breast pain; No breast lump; No nipple discharge Current Contraception:Sati sfied with current contraception; Intrauterine device (iud) Sexual complaints:No sexual complaints; No pain during intercourse; Normal libido Menopausal Symptoms:No menopausal symptoms; Normal vaginal lubrication Psychological symptoms:No depression; No anxiety; No PMDD Preventive measures:Encourage self breast examination; Encourage regular exercise; Encourage no tobacco use; Encourage regular mammograms starting age 40; Followed with yearly pap smears; History of abnormal pap smear/cervical dysplasia; Needs to schedule mammogram; Up to date on colonoscopy screening Nirmala Brady [facility] [address], [place], [address], [facility] 09/19/2022 12:20:59 09/26/2023 text/html Annual GYNReport ed bypatient.History: no gynecologic complaints Menstrual cycle:Normal menses (Light or no menses on IUD mirena) Urinary symptoms:No hematuria; No incontinence Vulva:No genital lesion Vagina:Normal vaginal discharge Breast:No breast pain; No breast lump; No nipple discharge Current Contraception:Sati sfied with current contraception; Intrauterine device (iud) Sexual complaints:No sexual complaints; No pain during intercourse; Normal libido Menopausal Symptoms:No menopausal symptoms; Normal vaginal lubrication Psychological symptoms:No depression; No anxiety; No PMDD Preventive measures:Encourage self breast examination; Encourage regular exercise; Encourage no tobacco use; Encourage regular mammograms starting age 40; Followed with yearly pap smears; Needs to schedule mammogram; Up to date on colonoscopy screening Nirmala Brady, [facility] [address], [place], [address], [place] [facility] 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 bypatient.Menopaus al Symptoms:no menopausal symptoms; normal vaginal lubrication Vaginal Bleeding:history of menopause having occurred; no history of post menopausal bleeding Urinary Symptoms:no hematuria; no incontinence; no nocturia; no urinary frequency Vulva:no genital lesion; no vulvar atrophy Vagina:normal vaginal discharge; no vaginal atrophy Breast:no breast lump; no nipple discharge; no breast pain Sexual Complaints:no sexual complaints Psychological Symptoms:no depression; no anxiety Preventive Measures:encourage regular mammograms starting age 40; encourage self breast examination; encourage regular exercise; encourage no tobacco use Patient presents for annual well woman exam. Patient denies concerns today. Missy milligan, [facility] 10/09/2024 09:31:58 OBGyn Episode No OBEpisode recorded.
--- OUTSIDE RECORDS SUMMARY | 2025-03-18 11:44 | XMS_ITS | Referral Summary ---
Author Organization [facility] [place] 163 [facility] Address [address] [place] [address] Care Team Providers Care Consulting Nurse Name Role Phone Kirstin Nguyen Unavailable [phone] Adalgisa Nye NP Primary Care Provider [phone] Encounters Date Type Department Care Team Description 01/27/2025 Telephone Family Physicians [facility] [address] [place] [address] Adalgisa Nye NP Prior Auth (ZEPBOUND 12.5) from Last 3 Months Allergies No known active allergies Medications estradioL (ESTRACE) 1 mg tablet TK 1 T PO QD 02/18/20 20 Active levonorgestreL (Mirena) IUD Mirena 21 mcg/24 hours (8 yrs) 52 mg intrauterine device 11/22/19 18 Active tirzepatide, weight loss, (Zepbound) 12.5 mg/0.5 mL pen injectorIndicat ions:Class 1 obesity due to excess calories without serious comorbidity with body mass index (BMI) of 31.0 to 31.9 in adult Inject 0.5 mL (12.5 mg total) under the skin every 7 days 6 mL 1 10/29/19 25 026 Active ergocalciferol (VITAMIN D) 50,000 unit capsuleIndicati ons:Vitamin D deficiency Take 1 capsule (50,000 Units total) by mouth once a week 13 capsule 12/14/19 25 Active zolpidem CR (AMBIEN CR) 12.5 mg CR tabletIndicatio ns:Insomnia, unspecified type Take 1 tablet (12.5 mg total) by mouth nightly 30 tablet 03/13/20 25 025 Active ALPRAZolam (XANAX) 0.5 mg tabletIndicatio ns:Insomnia, unspecified type Take 1 tablet (0.5 mg total) by mouth 2 (two) times a day as needed for anxiety 40 tablet 03/13/20 25 Active zolpidem CR (AMBIEN CR) 12.5 mg CR tabletIndicatio ns:Insomnia, unspecified type Take 1 tablet (12.5 mg total) by mouth nightly 30 tablet 02/13/20 25 025 Discontin ued(Reord er) ALPRAZolam (XANAX) 0.5 mg tabletIndicatio ns:Insomnia, unspecified type Take 1 tablet (0.5 mg total) by mouth 2 (two) times a day as needed for anxiety 40 tablet 02/13/20 25 025 Discontin ued(Reord er) Active Problems Problem Noted Date Diagnosed Date Infected cyst of skin 10/31/2023 Assessment & Plan (10/31/2023 4:45 PM POLYMER SPECIALIST): Improving; has been on Amoxicillin Referral to derm placed to have sac removed Class 1 obesity without seri ous comorbidity with body mass index (BMI) of 31.0 to 31.9 in adult 07/24/2023 Assessment & Plan (03/26/2024 10:02 AM CDT): Chronic, stable Down 40 pounds since October Tolerating Zepbound well Continue Zepbound 12.5 mg weekly Assessment & Plan (10/31/2023 4:44 PM POLYMER SPECIALIST): Stable, has been losing weight slowly Has been working on diet and exercise Continue Zepbound 7.5 mg for the next two weeks and then increase to 10 mg once weekly Assessment & Plan (07/24/2023 12:49 PM POLYMER SPECIALIST): Most discussed importance of diet and exercise; patient verbalized understanding Patient would like to try Wegovy Wegovy 0.25 mg subcu once weekly Insomnia 07/24/2023 Assessment & Plan (03/26/2024 10:03 AM CDT): Chronic, stable, well controlled Continue Ambien 12.5 mg and Xanax 0.5 mg nightly Assessment & Plan (07/24/2023 12:48 PM POLYMER SPECIALIST): Stable, currently well-controlled Continue Ambien 12.5 mg and Xanax 0.5 mg nightly S/P medial meniscectomy of left knee 03/03/2023 S/P lateral meniscectomy of left knee 03/03/2023 Resolved Problems Problem Noted Date Diagnosed Date Resolved Date Complex tear of lateral meniscus of left knee 02/03/20 23 03/03/2023 Complex tear of medial meniscus of left knee 3 03/03/2023 Immunizations Immunization Administration Dates Next Due Hep A, Adult 03/06/2000,09/06/1999 Influenza, Unspecified 06/29/2023(Deferr ed: Patient Refused),06/29/2023(Deferred: Patient Refused),05/28/2022(Deferred: Patient Refused),05/28/2022(Deferred: Patient Refused) Social History Tobacco Use Types Packs/Day Years Used Date Smoking Tobacco: Former Cigarettes 0.5 20 1 987 - 2006 Smokeless Tobacco: Never Tobacco Cessation:Counseling Given: Not Answered Alcohol Use Standard Drinks/Week Comments Not Currently 0 (1 standard drink = 0.6 oz pur e alcohol) [facility] Utilities Answer Date Recorded In the past 12 months has city hospital [place], [place], or water [place] threatened to shut off services in your home? No 03/26/2024 Humiliation, Afraid, Rape, and Kick questionnair e Answer Date Recorded Within the last year, have y ou been afraid of your partner or ex-partner? No 03/26/2024 Within the last year, have y ou been humiliated or emotionally abused in other ways by your partner or ex-partner? No Within the last year, have y ou been kicked, hit, slapped, or otherwise physically hurt by your partner or ex-partner? No 03/26/2024 Within the last year, have y ou been raped or forced to have any kind of sexual activity by your partner or ex-partner? No 03/26/2024 Social Connection and Isolation Panel [NHANES] A nswer Date Recorded In a typical week, how many times do you talk on the phone with family, friends, or neighbors? Twice a week 03/26/2024 How often do you get together with friends or re latives? Twice a week 03/26/2024 Attends Confucianist Services Not on file 03/26 Do you belong to any clubs o r organizations such as religious groups, unions, fraternal or athletic groups, or school groups? No 03/26/2024 How often do you attend meet ings of the clubs or organizations you belong to? Never 03/26/2024 Are you , , di vorced, , never , or living with a partner? Never 03/26/2024 AUDIT-C Answer Date Recorded Q1: How often do you have a drink containing alc ohol? 2-4 times a month 03/26/2024 Q2: How many drinks containi ng alcohol do you have on a typical day when you are drinking? 3 or 4 03/26/2024 Q3: How often do you have si x or more drinks on one occasion? Never 03/26/2024 Overall Financial Resource Strain (CARDIA) Answe r Date Recorded How hard is it for you to pa y for the very basics like food, housing, medical care, and heating? Not hard at all 03/26/2024 PHQ-2 Answer Date Recorded PHQ-2 Total Score (If total score is 3 or more points, staff should administer the PHQ-9) 0 03/26/2024 [facility] [place] of Occupat ional Health - Occupational Stress Questionnaire Answer Date Recorded Do you feel stress - tense, restless, nervous, or anxious, or unable to sleep at night because your mind is troubled all the time - these days? To some extent 03/26/2024 Exercise Vital Sign Answer Date Recorde d On average, how many days pe r week do you engage in moderate to strenuous exercise (like a brisk walk)? 2 days 03/26/2024 On average, how many minutes do you engage in exercise at this level? 30 min 03/26/2024 Hunger Vital Sign Answer Date Recorded Within the past 12 months, y ou worried that your food would run out before you got the money to buy more. Never true 03/26/20 24 Within the past 12 months, t he food you bought just didn't last and you didn't have money to get more. Never true 03/26/2024 PRAPARE - Transportation Answer Date Re corded In the past 12 months, has l ack of transportation kept you from medical appointments or from getting medications? No 02/27 In the past 12 months, has l ack of transportation kept you from meetings, work, or from getting things needed for daily living? No 03/26/2024 PHQ-9 Answer Date Recorded PHQ-9 Total Score 0 03/26/2024 Housing Stability Vital Sign Answer Cr e Recorded In the last 12 months, was t here a time when you were not able to pay the mortgage or rent on time? No 03/26/2024 In the past 12 months, how m any times have you moved where you were living? 0 03/26/2024 At any time in the [facility], were you homeless or living in a retirement (including now)? No 03/26/2024 Personal Safety Answer Date Recorded Have you ever been in or are you currently in a harmful physical or emotional relationship or is someone making you feel afraid or unsafe? 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 Not on file Not on file Last Filed Vital Signs Vital Sign Reading Time Taken Comments Blood Pressure 114/72 03/26/2024 9:24 AM CDT Pulse 65 03/26/2024 9:24 AM CDT Temperature 36.6 C (97.9 F) 03/26/2024 9:24 AM CDT Respiratory Rate 16 03/26/2024 9:24 AM CDT Oxygen Saturation 98% 03/26/2024 9:24 AM CDT Inhaled Oxygen Concentration - - Weight 83.2 kg (183 lb 6.4 oz) 03/26/2024 9:24 A M CDT Height 162.6 cm (5' 4) 03/26/2024 9:24 AM CDT Body Mass Index 31.48 03/26/2024 9:24 AM CDT Plan of Treatment Not on file Procedures Procedure Name Priority Date/Time Associated Diagnosis Comments HEPATITIS C ANTIBODY Routine 03/18/2024 11:12 AM CDT Encounter for hepatitis C screening test for low risk patient COLONOSCOPY IMAGES 06/19/2014 from Last 3 Months or Most Recently Relevant to Health Maintenance Results * Hepatitis C antibody Blood (03/18/2024 11:12 AM CDT) Hep C Ab Nonreactive Nonreactive Comment: Interpretive Data Nonreactive: Antibodies to HCV not detected. Does NOT exclude the possibility of recent exposure to HCV. Equivocal: Equivocal for HCV antibodies. Supplemental molecular testing will be automatically performed to determine infection status in accordance with current CDC screening recommendations. Reactive: Positive for HCV antibodies. This may represent current or past HCV infection. Supplemental molecular testing will be automatically performed to determine current infection status in accordance with current CDC screening recommendations. Interpretive data was last revised on 2019. Testing performed by: [facility], [address] [place] [address]., [id number] Blood 03/18/2024 11:1 2 AM CDT 03/18/2024 5:33 PM CDT us Adalgisa Nye NP LAB MICROBIOLOGY - GENERAL ORDER ANDRES Final Result Performing Organization Address City/State/[facility] de Phone Number [facility] [place] [facility] [place] [address] * COLONOSCOPY IMAGES (06/19/2014) Anatomical Region Laterality Modality Other Narrative 06/19/2014 Ordered by an unspecified provider. us Historical Provider GI PROCEDURE ORDERABLES F inal Result from Last 3 Months or Most Recently Relevant to Health [place] [address] [place] [address] [employer] Care Teams Consulting Nurse Relationship Specialty Start Date End Date Aadlgisa Nye NP [address] [place] [address] [address] [place] [address] PCP - General Family Medicine 07/24/23 Kirstin Nguyen PA [address] [place] [address] [address] [place] [address] Physician Glassware Maker Orthopedic Surgery 02/13/23
--- OUTSIDE RECORDS SUMMARY | 2025-03-18 11:44 | XMS_ITS | Clinical Summary ---
Author Organization [facility] Address [address] [place] [address] Care Team Providers Care Palliative Medicine Physician Name Role Phone Johnathan Pink MD Primary Care Provider + Source Comments [facility],non-[facility] Affiliates and Associated Physician Practices is amultiple site organization consisting of ambulatory clinics and hospital sitesin [place], [place], [place]. This disclosure is being madepursuant to the Care Everywhere program and may not contain all information available regarding this patient. Last updated 18.[facility] Social History Tobacco Use Types Packs/Day Years Used Date Smoking Tobacco: Never Assessed Comments Unknown Sex and Gender Information Value Date Recorded Sex Assigned at Not on file Legal Sex Female 4:56 AM EXTRACTOR TENDER RAW STOCK Gender Identity Female 08/04/2022 8:04 AM EXTRACTOR TENDER RAW STOCK Sexual Orientation Straight 08/04/2022 8: 04 AM EXTRACTOR TENDER RAW STOCK Last Filed Vital Signs Vital Sign Reading Time Taken Comments Blood Pressure 147/96 01/31/2017 7:52 AM CDT Pulse 76 01/31/2017 7:52 AM CDT Temperature 37.1 C (98.7 F) 01/31/2017 7:52 AM CDT Respiratory Rate 16 01/31/2017 7:52 AM CDT Oxygen Saturation 99% 01/31/2017 7:52 AM CDT Inhaled Oxygen Concentration - - Weight 86.2 kg (190 lb) 01/31/2017 5:55 AM CDT Height 165.1 cm (5' 5) 01/31/2017 5:55 AM CDT Body Mass Index 31.62 01/31/2017 5:55 AM CDT Plan of Treatment Health Maintenance Due Date Last Done Comments RICHIE (AGES 45-75) - COL ON CA SCREENING 1970 COLON MONITORING 1970 COLONOSCOPY - COLON CA SCREENING 1970 CT COLONOGRAPHY - COLON CA SCREENING 1970 Colorectal Cancer Screening 1970 FIT - COLON CA SCREENING 1970 FLEX SIG - COLON CA SCREENING 1970 LIPID TESTING 1970 HIV SCREENING 1985 HEPATITIS C SCREENING 01/16/1988 DTAP/TDAP/TD VACCINES (1 - Tdap) 1989 HEPATITIS B VACCINE (1 of 3 - 19+ 3-dose series) 1989 MAMMOGRAM 04/04/2014 04/04/2012, 03/18/2011, 02/05/2010 PNEUMOCOCCAL VACCINE 50+ (1 of 1 - PCV) 01/21/2020 ZOSTER VACCINE (1 of 2) 01/21/2020 COVID-19 VACCINE (1 - 2023-2 5 season) 2024 DEPRESSION SCREENING 08/28/2024 INFLUENZA VACCINE (#1) 2025 HIB VACCINE Aged Out No longer eligi ble based on patient's age to complete this topic HPV VACCINE Aged Out No longer eligi ble based on patient's age to complete this topic MENINGOCOCCAL (Group B) VACCINE SHARED DECISION-MAKING Aged Out No longer eligible based on patient's age to complete this topic MENINGOCOCCAL GROUPS A/C/Y/W VACCINE Aged Out No longer eligible b ased on patient's age to complete this topic Procedures Procedure Name Priority Date/Time Associated Diagnosis Comments MAMMO BILAT SCREENING Routine 04/04/2012 3:46 PM CDT Other screening mammogram from Last 3 Months or Most Recently Relevant to Health Maintenance Results * OLGA LIDIA SCREENING DIGITAL IMAGE BILATERAL [id number] (04/04/2012 3:46 PM CDT) Anatomical Region Laterality Modality Breast Bilateral Mammography 04/05/2012 9:32 AM CDT Narrative 04/05/2012 9:32 AM CDT EXAMINATION: Digital screening mammogram on 04/04/2012. PRIOR: 2010 FINDINGS: Computer assisted detection was utilized. The tissue density is dense. There is no significant change since the prior mammogram. ASSESSMENT: BIRADS Category 1: Negative mammogram. RECOMMENDATION: Follow up in one year. [facility] utilizes [employer] as a reminder system to notify patients of their next recommended mammogram. Procedure Note Kirstin Warner MD - 04/05/2012 EXAMINATION: Digital screening mammogram on 04/04/2012. PRIOR: 2010 FINDINGS: Computer assisted detection was utilized. The tissue density is dense. There is no significant change since the prior mammogram. ASSESSMENT: BIRADS Category 1: Negative mammogram. RECOMMENDATION: Follow up in one year. [facility] utilizes [employer] as a reminder system to notify patients of their next recommended mammogram. Jose Luis Cottrell MD MAMMO ORDERABLES Final Resu lt from Last 3 Months or Most Recently Relevant to Health Maintenance Care Teams Palliative Medicine Physician Relationship Specialty Start Date End Date Johnathan Pink MD [address] [address] PCP - General 04/03/12
--- OUTSIDE RECORDS SUMMARY | 2025-03-18 11:44 | XMS_ITS | Clinical Summary ---
Author Organization [facility] [place] 163 [facility] Address [address] [place] [facility] [address] Care Team Providers Care Pulp Grinder And Blender Name Role Phone Kirstin Nguyen Unavailable [phone] Adalgisa Nye NP Primary Care Provider [phone] Allergies No known active allergies Medications estradioL [...] 10/31/2023 Assessment & Plan (10/31/2023 4:45 PM RUBBER TURNER): Improving; has been on Amoxicillin Referral to derm placed to have sac removed Class 1 obesity without seri ous comorbidity with body mass index (BMI) of 31.0 to 31.9 in adult 07/24/2023 Assessment & Plan (03/26/2024 10:02 AM CDT): Chronic, stable Down 40 pounds since October Tolerating Zepbound well Continue Zepbound 12.5 mg weekly Assessment & Plan (10/31/2023 4:44 PM RUBBER TURNER): Stable, has been losing weight slowly Has been working on diet and exercise Continue Zepbound 7.5 mg for the next two weeks and then increase to 10 mg once weekly Assessment & Plan (07/24/2023 12:49 PM RUBBER TURNER): Most discussed importance of diet and exercise; patient verbalized understanding Patient would like to try Wegovy Wegovy 0.25 mg subcu once weekly Insomnia 07/24/2023 Assessment & Plan (03/26/2024 10:03 AM CDT): Chronic, stable, well controlled Continue Ambien 12.5 mg and Xanax 0.5 mg nightly Assessment & Plan (07/24/2023 12:48 PM RUBBER TURNER): Stable, currently well-controlled Continue Ambien 12.5 mg and Xanax 0.5 mg nightly S/P medial meniscectomy of left knee 03/03/2023 S/P lateral meniscectomy of left knee 03/03/2023 Resolved Problems Problem Noted Date Diagnosed Date Resolved Date Complex tear of lateral meniscus of left knee 02/03/20 23 03/03/2023 Complex tear of medial meniscus of left knee 3 03/03/2023 Encounters Date Type Department Care Team Description 01/27/2025 Telephone [facility] [address] [place] [address] Adalgisa Nye NP Prior Auth (ZEPBOUND 12.5) from Last 3 Months Immunizations Immunization Administration Dates Next Due Hep A, Adult 03/06/2000,09/06/1999 Influenza, Unspecified 06/29/2023(Deferr ed: Patient Refused),06/29/2023(Deferred: Patient Refused),05/28/2022(Deferred: Patient Refused),05/28/2022(Deferred: Patient Refused) Surgical History Surgery Date Site/Laterality Comments TONSILLECTOMY FOOT NEUROMA SURGERY Right KNEE ARTHROSCOPY W/ LATERAL RELEASE January 2023 GUAL[facility]ERTO Medical History Medical History Date Comments Anxiety Family History Medical History Relation Name Comments Hypertension Father Hypertension; Breast cancer Maternal Grandmother Maternal grandmothe r No Known Problems Mother Breast cancer Paternal Grandmother Paternal grandmothe r Thyroid disease Sister Relation Name Status Comments Father Maternal Grandmother Maternal grandmother Mother Paternal Grandmother Paternal grandmother Sister Social History Tobacco Use Types Packs/Day Years Used Date Smoking Tobacco: Former Cigarettes 0.5 20 1 987 - 2007 Smokeless Tobacco: Never Tobacco Cessation:Counseling Given: Not Answered Alcohol Use Standard Drinks/Week Comments Not Currently 0 (1 standard drink = 0.6 oz pur e alcohol) [facility] Utilities Answer Date Recorded In the past 12 months has e electric, gas, oil, or water [employer] threatened to shut off services in your [...] re latives? Twice a week 03/26/2024 Attends Christianity Services Not on file 03/26 Do you belong to any clubs o r organizations such as sikh groups, unions, fraternal or athletic groups, or [...] staff should administer the PHQ-9) 0 03/26/2024 [facility] [place] of Occupat ional Health - Occupational Stress [...] any time in the past 12 m [facility], were you homeless or living in a long-term (including now)? No 03/26/2024 Personal Safety Answer Date Recorded Have you ever been in or are you currently in a harmful physical or emotional relationship or is someone making you feel afraid or unsafe? 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 file Not on file Obstetrics History Last Filed Vital Signs Vital Sign Reading Time Taken Comments Blood Pressure 114/72 03/26/2024 9:24 AM CDT Pulse 65 03/26/2024 9:24 AM CDT Temperature 36.6 C (97.9 F) 03/26/2024 9:24 AM CDT Respiratory Rate 16 03/26/2024 9:24 AM CDT Oxygen Saturation 98% 03/26/2024 9:24 AM CDT Inhaled Oxygen Concentration - - Weight 83.2 kg (183 lb 6.4 oz) 03/26/2024 9:24 AM CDT Height 162.6 cm (5' 4) 03/26/2024 9:24 AM CDT Body Mass Index 31.48 03/26/2024 9:24 AM CDT Plan of Treatment Health Maintenance Due Date Last Done Comments DTaP/Tdap/Td Vaccine (1 - Tdap) 1981 Zoster Vaccine (1 of 2) 01/21/2020 Cervical Cancer Screening 09/19/2023 09/19/2022 Breast Cancer Screening-Mammogram 01/07/2024 01/06/2023, 08/28/2022, 09/02/2021, Additional history exists Regular Well Visit/Exam 18-64 05/25/2024 05/25/2023 Colon Cancer Screening-Colonoscopy 06/19/2024 06/19/2014, 06/19/2014 Depression Screening 03/26/2025 03/26/2024, 03/26/2024, 10/31/2023, Additional history exists Colon Cancer Screening-CT Colonography Discontinued 06/19/2014, 06/19/2014 Colon Cancer Screening-DNA Stool Discontinued 06/19/2014, 06/19/2014 Colon Cancer Screening-FIT Discontinued 06/19/2014, Colon Cancer Screening-Sigmoidoscopy Discontinued 06/19/2014, 06/19/2014 Hepatitis B Screening Completed 03/18/2024 Hepatitis C Screening Completed 03/18/2024 Influenza Vaccine Discontinued Pneumococcal vaccine <65 Aged Out No longer eligible based on [...] last revised on 2019. Testing performed by: [facility], [address] [place] [address]., [id number] Blood 03/18/2024 11:1 2 AM CDT 03/18/2024 5:33 PM CDT Adalgisa Nye NP LAB MICROBIOLOGY - GENERAL ORDER ANDRES Final Result Performing Organization Address City/State/[facility] Co de Phone Number [facility] ([place]) 1 [facility] [place] [address] * COLONOSCOPY IMAGES (06/19/2014) Anatomical Region Laterality Modality Other Narrative 06/19/2014 Ordered by an unspecified provider. Historical Provider GI PROCEDURE ORDERABLES F inal Result from Last 3 Months or Most Recently Relevant to Health Maintenance Insurance [employer] OPEN ACCESS [employer] H[employer]PPO Address: [facility] [id number] [place] [address] [place] [address] [facility] Care Teams Pulp Grinder And Blender Relationship Specialty Start Date End Date Adalgisa Nye NP [address] [place] [address] [place] [address] PCP - General Family Medicine 07/24/23 Kirstin Nguyen PA [address] [place] [address] [place] [address] Physician Principal Security Architect Orthopedic Surgery 02/13/23
--- OUTSIDE RECORDS SUMMARY | 2025-03-18 11:44 | XMS_ITS | Data Portability ---
Author Organization [place] [facility], Mina [facility] Address [address] [place] [address] Care Team Providers Care Core Inserter Name Role Phone ISRRAEL HESS Primary Care Provider Assessment Encounter Date Assessment Date Assessment LastModified by Organization Details LastModified Time 11/22/2016 11/22/2016 R 3 CPD neuroma Metata rsalgia R Possible fungus R4, sample abalettie Not available 11/22/2016 18:29:04 12/13/2016 12/13/2016 R 3 CPD neuroma no better Metata rsalgia R resolved fungus R4, already looks better abalettie Not available 12/13/2016 18:38:12 12/27/2016 12/27/2016 R 3 CPD neuroma somewhat better, no tingling nodule at the lateral 3rd MTPJ, possible fibroma Metata rsalgia R resolved fungus R4, already looks better abalettie Not available 12/27/2016 17:16:30 Plan of Treatment Reminders Order Date Submit Date Provider Last Modified By Organization Details Last Modified Time Details Appointments None record ed. Lab None record ed. Referral None record ed. Procedures None record ed. Surgeries None record ed. Imaging None record ed. Medication Orders None record ed. Patient TargetsNo targets recorded. Patient Instructions Encounter Date Encounter Id Patient Instructions Last Modified By Organization Details Last Modified Time 11/22/2016 [id number] toenail fungus: care instructions [email or web address] Not available 11/23/2016 09:34:13 metatarsalgia: care instructions kkampschroeder Not available 11/23/2016 09:34:13 srivastava's neuroma: care instructions kkampschroeder Not available 11/23/2016 09:34:13 shot to the R 4th MTPJ precert for alcohol series nail sample xrays H&P, reviewed chart . The painful nerve was discussed as a neuroma that is a sensory nerve pinched between the metatarsals. All conservative, medical and surgical treatment options were discussed. I recommended wider and stiffer shoes at the ball of the foot to decrease the pressure on the painful nerve. Accomodative pads were advised and recommended to reduce pressure in the area. Medical options of cortisone shots, NSAIDs and alcohol neurolysis were discussed. Occasionally surgery or neurolysis is needed to relieve the pain and may result in permanent numbness in the affected toes. The toenail is not the cause of the pain she has. I am not sure the toenail is fungal bc the toe rotates into a adductovarus. I do not recommend any tx until the bx results are obtained. Then if (+) I discussed w her, and recommend topicals since the area involved is just a little white spot. Will contact her with results. I discussed nail fungus with the patient and possible treatment options which are: topical antifungal, oral antifungal, a combo, nail avulsion with topical antifungal, permanant removal of the nail and the least invasive or painful of Cutera laser treatment. The patient states they would prefer to do nothing at this time. RX refused at this time. Discussed virulence of nail fungus and need for life long prophylaxis of nail fungus with a topical antifungal OTC cream weekly and spraying shoes daily with an antifungal spray when removed from the feet. Answered patient's questions and educational handouts dispensed. FU 2 wks for neuroma abalettie Not available 11/23/2016 06:54:28 12/13/2016 [id number] toenail fungus: care instructions kkampschroeder Not available 12/14/2016 09:42:28 atif's neuroma: care instructions kkampschroeder Not available 12/14/2016 09:42:28 she could not get the econazole bc too expensive, ins not covered Rx clotrimazole OTC instead, use BID. start alcohol series R foot neuroma recommend clotrimazole bid x6 mos for the R4 nail, already looks better after debridment/sampl e fu 2 wk abalettie Not available 12/14/2016 09:39:01 12/27/2016 [id number] atif's neuroma: care instructions kkampschroeder Not available 12/27/2016 17:23:34 will investigate a fibroma w MRI if the neuroma does not get better 2nd alcohol shot to the R3CPDN Fu 2 wk abalettie Not available 12/27/2016 17:17:09 Reason for Referral None Reported. Results Created Date Observation Date Name Description Value Unit Range Abnormal Flag Note LastModifiedBy Organization Detail LastModifiedTime Result Notes None recorded. Procedures Surgical History Date Name Laterality Status Provider Name and Address Organization Details Recorded Time 7 36534 Neurolysis of neuroma completed [facility] 12/27/2016 17:10:54 7 67495 Neurolysis of neuroma completed [facility] 12/14/2016 09:38:07 7 16397- Est. 10-19 min exam completed [facility] 12/13/2016 18:37:43 7 88004 Sm Joint completed [facility] 11/22/2016 18:29:28 7 39202 X-rays 3v Feet Normal completed [facility] 11/22/2016 18:05:19 7 15017 Nail biopsy completed [facility] 11/22/2016 18:29:38 7 08655-- ERGONOMICS TECHNICIAN H&P Exam 30-44 minutes completed [facility] 11/22/2016 18:05:09 Imaging Results None recorded. Procedure Notes None recorded. Medical Equipment None Reported. Medications Name Sig Start Date Stop Date Status Note LastModified by Organization Details LastModified Time metronidazole 0.75 % (37.5 mg/5 gram) vaginal gel 11/22 completed Not Available Not Available Not Available acyclovir 400 mg tablet active Not Available Not Available No t Available econazole nitrate 1 % topical cream apply bid active Not Available Not Available No t Available ergocalciferol (vitamin D2) 1,250 mcg (50,000 unit) capsule active Not Available Not Available Not Available zolpidem ER 12.5 mg tablet,extende d release,multip hase TK 1 T PO QD HS active Not Available Not Available No t Available Vitals Date Recorded Body height Body weight Body mass index (BMI) Provider Name and Address Organization Details Last Updated DateTime 11/22/2016 165.1 cm 38290.55 g 31.6 kg/m2 [facility] 11/22/2016 17:38:43 Date Recorded Body height Provider Name an d Address Organization Details Last Updated DateTime 12/13/2016 165.1 cm [facility] 12/13/2016 18:05:56 Date Recorded Body height Body weight Body mass index (BMI) Provider Name and Address Organization Details Last Updated DateTime 12/27/2016 165.1 cm 12228.55 g 31.6 kg/m2 [facility] 12/27/2016 17:02:11 Social History Question Answer Notes LastModified by [employer] Details LastModified Time Tobacco Smoking Status Former Smoker [facility] 11/22/2016 17:35:07 Which Illicit Or Recreational Drugs Have You Used? None kkZigaVitechroeder Information not available 11/22/2016 Quit Smoking How Many Years Ago? 14 Information not available 11/22/2016 Before Quit, How Many Ppd? .5 Information not available 11/22/2016 Before Quitting, Smoked How Many Years? 15 [employer] Information not available 11/22/2016 Size Of Shoes 7.5 [employer] Informa tion not available 11/22/2016 How Much Tobacco Do You Smoke? No Information not available 11/22/2016 What Types Of Sporting Activities Do You Participate In? Gym kkZigaV[employer]chroeder Information not available 11/22/2016 Sex: Unknown Functional Status Question Answer Note LastModified by [employer] Details LastModified Time What is your level of alcohol consumption? 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 Occasional Information not available 11/22/2016 Mental Status None recorded. Family History Relationship Description Onset Age of this Age Resolved Age Notes LastModified by Organization Details LastModified Time Father No current problems or disability abalettie Not available 11/22 18:04:06 Mother No current problems or disability abalettie Not available 11/22 18:04:06 Medical History Condition Response Tuberculosis or TB N Heart Problems N Ulcers on Legs or Feet N Coronary Artery Disease N HIV or AIDS N Seizure Disorder N Gout N High Blood Pressure N Clot in Lung or Pulmonary Embolism N Menopause N Lung Condition N Phlebitis or Venous Blood Clot N Migraines N Depression N Pacemaker N Anemia N Back Pain N Neurologic Disease N Sciatica N Heart Attack ([place]) N Diabetes N Anxiety Disorder N Urinary Tract Infections N Bleeding Disorder N Arthritis N Abuse of Alcohol or Drugs N Back injury N Ear Problems N Cancer N Dementia N Eye Problems N Stroke N Stomach Problems N Peripheral Vascular Disease N Sinus Conditions N Broken Bone N Thyroid Disorder N High Cholesterol N Hepatitis N Liver Disease N Heart Disease N Rheumatoid Arthritis N Rash N Osteoporosis N Kidney Disease N Gynecological HistoryNo gynecological history recorded. 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 849331854 B35.1 [id number] SURYA Kwan [address] [place] [address] 12/13/2016 18:05:38 12/13/2016 18:25:38 Plantar nerve lesion 335482352 G57.61 Pain in right foot 28061 28671 19284 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 680461067 B35.1 [id number] SURYA Kwan [address] [place] [address] 12/27/2016 17:00:35 12/27/2016 17:16:05 Plantar nerve lesion 223030019 G57.61 Health Concerns Section Related Observation LastModified by Organization Raphaelnatacha ls LastModified Time None Recorded Concern Status LastModified by Organization Details LastModified Time None Recorded Advance Directives Directive None Recorded Payers Insurance Date Sequence Insurance Name Policy Number Policy Muller Covered Member ID Muller Member ID Guarantor Name 12/26/2016 Karolina ZURITA [id number] Yessy Villanueva [id number] Yessy Villanueva Notes Date Note Type Note Provider Name and Address Organization Details Recorded Time 7 text/html Nails--Reported bypatient.Location:toena ils right 4, , , , Nature:constant aching pain (feels like a bee sting all the time. Sometimes tingly.); the toenail was flakey a week ago and she cut it back but that did not help the pain, just made it look better. Severity:moderate Duration:1 years; socks and shoes make it really painful. Timing:recurrent with shoes or pressure Onset:all shoes apply uncomfortable pressure Alleviating Factors:cessation of activity; taking off shoes; has been using topical antifungal (from her burner operator doesn't seem to be helping at all.) Aggravating Factors:precipitated by wearing shoes; pressure; she was getting a pedicure and the lady doing it said she had a fungus that was causing her pain. Associated Symptoms:numbness tingling and pain at the fourth toe Course:getting worse Previous Treatment:self trimming; topical OTC antifungal (off and on for 3 mos) AIMEE Espinoza [facility] 11/23/2016 06:57:02 7 text/html Foot Pain--Reported bypatient.Location:right 4 ball of the foot at Metatarsophalangeal Joint Quality:not changing; pins and needles sensation Severity:moderate Duration:several months Timing:daytime when active walking Context:gradual Alleviating Factors:sitting; rest; not putting full weight it; cortisone shot (didn't do anything) Aggravating Factors:standing; walking; weightbearing; pressure Associated Symptoms:numbness;tingli ng Previous Surgery:none Prior Imaging:x ray Previous Injections:helped temporarily (while she was numb but she says otherwise it didn't make the pain any better) Previous Treatments:did not help AIMEE Espino[facility] [employer] [facility] 12/14/2016 09:39:31 7 text/html Foot Pain--Reported bypatient.Location:right fourth toe; right 4 ball of the foot at Metatarsophalangeal Joint Quality:improving (in some ways); pins and needles sensation seems to be better but now feels like she is walking on a knot. Severity:moderate Duration:several months Timing:daytime when active walking Context:gradual Alleviating Factors:sitting; rest; not putting full weight it; cortisone shot (didn't help) Aggravating Factors:standing; walking; weightbearing; pressure Previous Surgery:none Prior Imaging:x ray Previous Treatments:helped a little (now no longer tingling, just feels like there is something hard in her foot)Notes:In today for 2nd alcohol inj. AIMEE Espinoza [facility] 12/27/2016 17:19:00 OBGyn Episode No OBEpisode recorded.
== END 2025-03-18 11:41 | disposition home or self-care (01) ==
PROVIDERS: PCP Nurse Practitioner; Visit Provider Student in an Organized Health Care Education/Training Program
DX: Z12.31 Encounter for screening mammogram for malignant neoplasm of breast (principal); R92.8 Other abnormal and inconclusive findings on diagnostic imaging of breast
CPT/HCPCS: 77063; 77067

== ENCOUNTER 2025-03-25 10:05 | Outpatient (CLI) | payer OTHER, SELFPAY ==
--- NOTE | ~2025-03-25 | MMUS_ITS ---
EXAMINATION: MM diagnostic haroldo RT w gaye, US breast RT limited HISTORY: Inconclusive mammogram TECHNIQUE: Additional 3-D tomosynthesis images of the right breast were performed and synthetic 2-D i mages were generated. CAD analysis was submitted and interpreted. High resolution Limited right breas t ultrasound was performed. COMPARISON: Comparison to multiple prior studies sequentially, with oldest reviewed study dated 05/07. BREAST PARENCHYMAL COMPOSITION: Not dense: There are scattered areas of fibroglandular density. FINDINGS: MAMMOGRAPHIC FINDINGS: There is persistent focal asymmetry medially in the right breast, middle third, not well visualized o n medial lateral view. No discrete mass is identified. No architectural distortion. ULTRASOUND: Limited right breast ultrasound: At 2:00, 8 cm from the nipple there is an oval hypoechoic structure best seen on radial images measuring 4 mm. This structure is not well visualized on antiradial images . No other masses are identified. IMPRESSION: 1. Probable benign findings of the right breast 2. Recommend 6 month follow-up diagnostic right mammogram and Limited right breast ultrasound BI-RADS category 3, probably benign findings. Reviewed, dictated and finalized at location B. IMPRESSION: 1. Probable benign findings of the right breast 2. Recommend 6 month follow-up diagnostic right mammogram and Limited right tin ast ultrasound BI-RADS category 3, probably benign findings.
--- OUTSIDE RECORDS SUMMARY | 2025-03-25 10:18 | XMS_ITS | Referral Summary ---
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): Improving; has been on Amoxicillin Referral to derm placed to have sac removed Class 1 obesity without seri ous comorbidity with body mass index (BMI) of 31.0 to 31.9 in adult 07/24/2023 Assessment & Plan (03/26/2024 10:02 AM CDT): Chronic, stable Down 40 pounds since October Tolerating Zepbound well Continue Zepbound 12.5 mg weekly Assessment & Plan (10/31/2023 4:44 PM LEVELING MACHINE OPERATOR): Stable, has been losing weight slowly Has been working on diet and exercise Continue Zepbound 7.5 mg for the next two weeks and then increase to 10 mg once weekly Assessment & Plan (07/24/2023 12:49 PM LEVELING MACHINE OPERATOR): Most discussed importance of diet and exercise; patient verbalized understanding Patient would like to try Wegovy Wegovy 0.25 mg subcu once weekly Insomnia 07/24/2023 Assessment & Plan (03/26/2024 10:03 AM CDT): Chronic, stable, well controlled Continue Ambien 12.5 mg and Xanax 0.5 mg nightly Assessment & Plan (07/24/2023 12:48 PM LEVELING MACHINE OPERATOR): Stable, currently well-controlled Continue Ambien 12.5 mg [...] drink = 0.6 oz pur e alcohol) [facility] Utilities Answer Date Recorded In the past 12 months has [facility] [employer], or water [employer] threatened to shut off services in your [...] re latives? Twice a week 03/26/2024 Attends Zoroastrianism Services Not on file 03/26 Do you belong to any clubs o r organizations such as gnosticist groups, unions, fraternal or athletic groups, or [...] staff should administer the PHQ-9) 0 03/26/20[address] [facility] of Occupat ional Health - Occupational Stress [...] any time in the past 12 m [facility], were you homeless or living in a jail (including now)? No 03/26/2024 Personal Safety Answer Date Recorded Have you ever been in or are you currently in a harmful physical or emotional relationship or is someone making you feel afraid or unsafe? 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 Testing performed by: [facility], [address] [place] [address]., [id number] Blood 03/18/2024 11:1 2 AM CDT 03/18/2024 5:33 PM CDT us Adalgisa Nye NP LAB MICROBIOLOGY - GENERAL ORDER ANDRES Final Result Performing Organization Address City/State/[facility] de Phone Number [facility] Department [place] [address] * COLONOSCOPY IMAGES (06/19/2014) Anatomical Region Laterality Modality Other Narrative 06/19/2014 Ordered by an unspecified provider. us Historical Provider GI PROCEDURE ORDERABLES F inal Result from Last 3 Months or Most Recently Relevant to Health [place] [address] [place] [address] [place] [address] [place] [address] [employer]ESS Care Teams Director Stars Relationship Specialty Start Date End Date Adalgisa Nye NP [address] [place] [address] [address] [place] [address] PCP - General Family Medicine 07/24/23 Kirstin Nguyen PA [address] [place] [address] [address] [place] [address] Physician Lens Assorter Orthopedic Surgery 02/13/23
--- OUTSIDE RECORDS SUMMARY | 2025-03-25 10:18 | XMS_ITS | Clinical Summary ---
Author Organization [facility] [address] [facility] Address [address] 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 RN): Improving; has been on Amoxicillin Referral to derm placed to have sac removed Class 1 obesity without seri ous comorbidity with body mass index (BMI) of 31.0 to 31.9 in adult 07/24/2023 Assessment & Plan (03/26/2024 10:02 AM CDT): Chronic, stable Down 40 pounds since October Tolerating Zepbound well Continue Zepbound 12.5 mg weekly Assessment & Plan (10/31/2023 4:44 PM TRANSITION RN): Stable, has been losing weight slowly Has been working on diet and exercise Continue Zepbound 7.5 mg for the next two weeks and then increase to 10 mg once weekly Assessment & Plan (07/24/2023 12:49 PM TRANSITION RN): Most discussed importance of diet and exercise; patient verbalized understanding Patient would like to try Wegovy Wegovy 0.25 mg subcu once weekly Insomnia 07/24/2023 Assessment & Plan (03/26/2024 10:03 AM CDT): Chronic, stable, well controlled Continue Ambien 12.5 mg and Xanax 0.5 mg nightly Assessment & Plan (07/24/2023 12:48 PM TRANSITION RN): Stable, currently well-controlled Continue Ambien 12.5 mg [...] Team Description 01/27/2025 Telephone [facility] [employer] [place] [address] Adalgisa Nye NP Prior Auth [...] drink = 0.6 oz pur e alcohol) [facility] Utilities Answer Date Recorded In the past 12 months has e electric, gas, oil, or water [employer] threatened to shut off services in your [...] re latives? Twice a week 03/26/2024 Attends Temple Services Not on file 03/26 Do you belong to any clubs o r organizations such as mandaen groups, unions, fraternal or athletic groups, or [...] staff should administer the PHQ-9) 0 03/26/2024 [facility] [place] of Occupat ional Health - Occupational Stress [...] any time in the past 12 m [facility], were you homeless or living in a care home (including now)? No 03/26/2024 Personal Safety Answer Date Recorded Have you ever been in or are you currently in a harmful physical or emotional relationship or is someone making you feel afraid or unsafe? 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 Testing performed by: [facility], [address] [place] [address]., [address] Blood 03/18/2024 11:1 2 AM CDT 03/18/2024 5:33 PM CDT Adalgisa Nye NP LAB MICROBIOLOGY - GENERAL ORDER ANDRES Final Result Performing Organization Address City/State/[facility] Co de Phone Number [facility]) 1 [facility] Department [place] [address] * COLONOSCOPY IMAGES (06/19/2014) Anatomical Region Laterality Modality Other Narrative 06/19/2014 Ordered by an unspecified provider. Historical Provider GI PROCEDURE ORDERABLES F inal Result from Last 3 Months or Most Recently Relevant to Health Maintenance Insurance [place] [address] [facility] Care Teams Sales Assistant Entertainment And Media Relationship Specialty Start Date End Date Adalgisa Nye NP [address] [place] [address] [place] [address] PCP - General Family Medicine 07/24/23 Kirstin Nguyen PA [address] [place] [address] [place] [address] Physician Client Business Manager Orthopedic Surgery 02/13/23
--- OUTSIDE RECORDS SUMMARY | 2025-03-25 10:18 | XMS_ITS | Encounter Summary ---
Author Organization [employer] Address [address] [place] [address] Care Team Providers Care Clipper Operator Name Role Phone Unavailable Primary Care Provider Unavailabl e Encounter Details Date Type Department Care Team (Late st Contact Info) Description 09/26/2006 Outpatient Historical [facility] 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
--- OUTSIDE RECORDS SUMMARY | 2025-03-25 10:18 | XMS_ITS | Clinical Summary ---
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
--- OUTSIDE RECORDS SUMMARY | 2025-03-25 10:18 | XMS_ITS | Clinical Summary ---
Author Organization [facility] Address [address] [place] [address] Care Team Providers Care Package Line Relief Operator Name Role Phone Johnathan Pink MD Primary Care Provider + Source Comments [facility],non-[place] Affiliates and Associated Physician Practices is amultiple site organization consisting of ambulatory clinics and hospital sitesin [place], [place], [place] and [place]. This disclosure is being madepursuant to the Care Everywhere program and may not contain all information available regarding this patient. 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 [facility] utilizes [employer] as a reminder system to notify patients of their next recommended mammogram. Procedure Note Kirstin Warner MD - 04/05/2012 EXAMINATION: Digital screening mammogram on 04/04/2012. PRIOR: 2010 FINDINGS: Computer assisted detection was utilized. The tissue density is dense. There is no significant change since the prior mammogram. ASSESSMENT: BIRADS Category 1: Negative mammogram. RECOMMENDATION: Follow up in one year. [facility] utilizes [employer] as a reminder system to notify patients of their next recommended mammogram. Jose Luis Cottrell MD MAMMO ORDERABLES Final Resu lt from Last 3 Months or Most Recently Relevant to Health Maintenance Care Teams Package Line Relief Operator Relationship Specialty Start Date End Date Johnathan Pink MD [address] [address] PCP - General 04/03/12
--- OUTSIDE RECORDS SUMMARY | 2025-03-25 10:18 | XMS_ITS | Data Portability ---
Author Organization [facility] [place] Address [address] [place] [address] Care Team Providers Care Black Leather Trimmer Name Role Phone ISRRAEL HESS Primary Care Provider WESLEY LEYVA Primary Care Provider [phone] Assessment Encounter Date Assessment Date Assessment LastModified [...] a year unless there are new symptoms. [email or web address] Not available 10/04/2024 11:24:39 Plan of Treatment Reminders Order Date Submit Date Provider Last Modified By Organization Details Last Modified Time Details Appointments None recorded. Lab pap, IG + HR HPV - HPV regardless but if HPV is positive need subtyping 16,18/45 2024 025 [facility] (Lab), [address], [place], [address], 5 01:46:10 Referral None recorded. Procedures None recorded. Surgeries None recorded. Imaging MAMMO, screening, digital, bilateral [address] [facility], [address], [facility] [address], [place], [address], 5 08:26:20 MAMMO, screening, bilateral [email or web address] [facility], [address], [facility], [place], [address], 4 17:39:35 MAMMO, screening, bilateral [address] [facility], [address], [facility], [place], [address], 3 15:01:48 Medication Orders estradiol 1 mg tablet 2024 025 [email or web address]87, [address], [place], [id number], 5 09:21:30 estradiol 1 mg tablet [email or web address] [facility], [address] [place], [place], [id number], 3 12:20:13 estradiol 1 mg tablet 2020 021 [facility]95865, [address], [place], [id number], 1 13:39:34 estradiol 1 mg tablet 2019 020 [facility]66929, [address], [place], [place], [id number], 0 12:22:11 Patient TargetsNo targets recorded. Patient [...] and labor atory findi ngs. See https ://Nevro/s ites/ defau lt/fi les 018-0 3/AW- 98892 _002_ 01.pd f for kavya zacarias n. Test perfo rmed by [facility] [facility], d/b/a [facility], [address], [place] [address] , Edi Mesa ra, DO, [facility] tor. HPV High Risk *HPV NOT DETEC ANNELIESE (TYPE S 16, 18, 31, 33, 35, 39, 45, 51, 52, 56, 58, 59, 66, 68) *HPV: The human papil lomav irus (HPV) High Risk Joan payne is an FDA-a pprov ed in-vi tro ampli fied nucle ic acid test for the quali tativ e detec tion of E6/E7 viral mRNA. RUST larissa d be corre lated with santi an prese ntati on, histo ry, cervi jess cytol ogy and other clini jess and labor atory findi ngs. See https ://Nevro/s ites/ defau lt/fi / 018-0 3/AW- 17044 _002_ 01.pd f for kavya zacarias n. Test perfo rmed by [employer], d/b/a [facility], [address], [place] [address] , Edi Mesa ra, DO, Labor [facility] tor. End of Repor t Techn ical servi álvaro provi ded by [email or web address], d/b/a [facility], [address] [place] [address] Rodrigo Young MD, [facility]. Case revie wed and diagn osis rende red at [email or web address] [facility], d/b/a [facility], [address] [place] [address] Rodrigo Young MD, Labor ge [facility] tor. CONFI DENTI AL Not Available [facility] ([facility]) [address], [place], [address], 07/20/2020 09:15:32 07/15/20 20 07/20/2020 HPV DNA, high- risk HPV high risk NOT DETECT ED normal Not Available [facility] ([facility]) [address], [place], [address], 07/20/2020 09:15:32 08/24/20 21 08/24/2021 IMAGE GUIDE D PAP AND HPV REGAR DLESS image guided Pap, HPV regardless of Pap result SEE RESULT S BELOW CASE REPOR T: Cytol ogy Gynec ologi jess Repor t Case: [id number] Autho lazaro ike Provi mari: Everardo Wayne Colle cted: 08/24 1657 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 Not Available [facility] (Lab) [address], [place], [address], 09/02/2021 13:27:55 09/19/19 23 09/19/2022 IMAGE GUIDE D PAP AND HPV REGAR DLESS image guided Pap, HPV regardless of Pap result SEE RESULT S BELOW CASE REPOR T: Cytol ogy Gynec ologi jess Repor t Case: [id number] Autho lazaro ramires Provi mari: Papito vick Everardo Colle cted: 09/19 1531 CHECKERING MACHINE ADJUSTER Order ing Locat ion: [place] Patho logmark [...] as clini malinda warra nted. Not Available [facility] (Lab) [address], [place], [address], 09/22/2022 14:21:42 09/19/19 23 09/19/2022 CT/GC (MIRA) , THINP REP VIAL chlamydia trachomatis, PCR NEGATI VE negati ve Not Available [facility] (Lab) [address] [place], [address], 09/22/2022 14:21:43 09/19/19 23 09/19/2022 CT/GC (MIRA) , THINP REP VIAL neisseria gonorrhoeae, PCR NEGATI VE negati ve Not Available [facility] (Lab) [address] [place], [address], 09/22/2022 14:21:43 09/19/19 23 09/19/2022 TRICH OMONA S VAGIN ANNA (RRNA ) trichomonas vaginalis ribosomal RNA (rrna) NEGATI VE negati ve Not Available [facility] (Lab) [address] [facility], [place], [address], 09/22/2022 14:21:43 09/26/19 24 09/26/2023 IMAGE GUIDE D PAP AND HPV REGAR DLESS image guided Pap, HPV regardless of Pap result SEE RESULT S BELOW CASE REPOR T: Cytol ogy Gynec ologi jess Repor t Case: [id number] Autho lazaro ramires Provi mari: Everardo Wayne Colle cted: 09/26 1617 CHECKERING MACHINE ADJUSTER Order ing Locat ion: [place] Patho logy [...] is recom stan d, as clini malinda warrquintni nted. Not Available [facility] (Lab) [address] [facility], [place], [address], 09/28/2023 11:12:45 10/09/19 25 10/09/2024 IMAGE GUIDE D PAP AND HPV REGAR DLESS image guided Pap, HPV regardless of Pap result SEE RESULT S BELOW abnormal CASE REPOR T: Cytol ogy Gynec ologi jess Repor t Case: [id number] Autho lazaro g Provi mari: Dermo dy, Mary Beth , ANP, FLOOR CARE TECHNICIAN Colle cted: 10/09 0842 Order ing Locat [...] Marlene carreon MD on 2024 at 1312 [address]ETER ----- ----- ----- ----- ----- ----- ----- [...] patie nt consi derat ions. Not Available [facility] (Lab) [address], [place], [address], 10/15/2024 01:46:10 09/02/19 22 09/01/2021 MAMMO , scree karel, bilat eral No observ ation record ed. [facility] [address], [place], [address], 09/08/2021 14:46:05 01/07/20 23 01/06/2023 MAMMO , scree karel, bilat eral No observ ation record ed. [email or web address] [facility] [address], [place], [address], 09/26/2023 11:52:30 01/29/20 24 01/29/2024 MAMMO , scree karel, bilat eral No observ ation record ed. [facility] [address], [place], [address], 10/15/2024 11:53:35 03/20/20 25 03/18/2025 MAMMO , scree karel, digit al, bilat eral No observ ation record ed. [facility] [address] [place], [address], 03/21/2025 17:12:29 Result Notes None recorded. Problems Name Problem SNOMED Code Status Onset Date Resolution Date Notes Provider Name and Address Organization Details Recorded Time Screenin g for malignan t neoplasm of cervix Completed 201208/23/2021 Screening for malignant neoplasms of the cervix;Re corded Elsewhere : No Locati on: [facility] So urce: EHR Chron ic: N Practic e ID: 0001 Bill able Time: 04:45:00 PM Annika [facility] [place] - [facility] 19:29:27 Uses oral contrace ption [id number] Completed 201208/23/2021 Surveilla nce of contracep tive pill;Mike rded Elsewhere : No Locati on: [facility] So urce: EHR Chron ic: N Practic e ID: 0001 Bill able Time: 04:15:00 PM Annika [facility] 19:29:17 Speciali zed medical examinat ion Completed 201308/23/2021 Gynecolog ical Examinati on;Record ed Elsewhere : No Locati on: [facility] So urce: EHR Chron ic: N Practic e ID: 0001 Bill able Time: 03:00:00 PM Annika [facility] 19:30:22 Adult health examinat ion Completed 201308/23/2021 ROUTINE MEDICAL EXAM;Mike rded Elsewhere : No Locati on: [facility] So urce: EHR Chron ic: N Practic e ID: 0001 Bill able Time: 03:00:00 PM Annika Sandoval [facility] 1 19:28:23 Vaginiti s and vulvovag initis Completed 201408/23/2021 Vaginitis ;Recorded Elsewhere : No Locati on: [facility] So urce: EHR Chron ic: N Practic e ID: 0001 Bill able Time: 10:00:00 AM Annika Sandoval [facility] 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 19:29:41 Finding of menstrua l bleeding Completed 201508/23/2021 Menorrhag ia;Record ed Elsewhere : No Locati on: [facility] So urce: EHR Chron ic: N Practic e ID: 0001 Bill able Time: 09:00:00 AM [facility] 19:28:56 Clinical finding Completed 201508/23/2021 Presence of (intraute rine) contracep tive device;Re corded Elsewhere : No Locati on: [facility] So urce: EHR Chron ic: N Practic e ID: 0001 Bill able Time: 09:30:00 AM Annika milligan [facility] 19:28:37 Contrace ptive sheath status [id number] Completed 201508/23/2021 Encounter for routine checking of intrauter ine contracep dev;Pract ice ID: [address] [facility] 19:28:42 Disorder of intraute rine contrace ptive device Completed 201508/23/2021 [facility] compl of intrauter ine contracep tive device, init encntr;Pr actice ID: [address] [facility] 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 19:30:07 Screenin g for malignan t neoplasm of rectum Completed 201508/23/2021 Encounter for screening for malignant neoplasm of rectum;Pr actice ID: [address] [facility] 19:29:32 Body mass index 30+ - obesity 455933086 Completed 201708/23/2021 Body mass index (BMI) 36.0-36.9 , adult;Rec orded Elsewhere : No Locati on: [facility] So urce: EHR Chron ic: N Practic e ID: 0001 Bill able Time: 01:30:00 PM [facility] 19:28:[address] Concept Completed 201708/23/2021 Encntr for general adult medical exam w/o abnormal findings; Recorded Elsewhere : No Locati on: [facility] So urce: EHR Chron ic: N Practic e ID: 0001 Bill able Time: 01:30:00 PM [facility] 19:29:36 Human papillom avirus deoxyrib onucleic acid detected , high risk on cervical specimen 771802228 Completed 201808/23/2021 Cervical high risk HPV DNA test positive; Practice ID: [address] [facility] 19:29:01 Insertio n of intraute rine contrace ptive device Completed 201808/23/2021 Encounter for insertion of intrauter ine contracep tive device;Pr actice ID: [address] [facility] 19:29:09 Pregnanc y test negative 439528594 Completed 201808/23/2021 Encounter for test, result negative; Practice ID: [address] [facility] 19:29:21 Hypertro phy of uterus 544530351 Completed 201808/23/2021 Hypertrop hy of uterus;Pr actice ID: [address] [facility] 19:29:05 Atypical squamous cells of undeterm ined signific ance on cervical Papanico laou smear 845757373 Completed 201808/23/2021 Atyp squam cell of undet signfc cyto smr crvx (ASC-US); Recorded Elsewhere : No Locati on: [facility] So urce: EHR Chron ic: N Practic e ID: 0001 Bill able Time: 12:29:54 PM [facility] 19:28:28 Uterine leiomyom a 41853260 Completed 201808/23/2021 Leiomyoma of uterus, unspecifi ed;Practi ce ID: [address] [facility] 19:30:11 Menopaus e present 998160107 Completed 201808/23/2021 Menopausa l and female climacter ic states;Pr actice ID: [address] [facility] 19:29:13 Elevated blood-pr essure reading without diagnosi s of hyperten lucy 342658973 Completed 201808/23/2021 Elevated blood-pre ssure reading, w/o diagnosis of htn;Pract ice ID: [address] [facility] 19:28:51 Problem Notes None recorded. Procedures Surgical History Date Name Laterality Status Provider Name and Address Organization Details Recorded Time 01/29/20 24 Date of Last Mammogram completed [facility] 10/04/2024 11:26:15 09/26/19 24 Date of Last Pap Smear completed [facility] 10/04/2024 11:25:39 05/06/20 19 Colposcopy completed [facility] 08/24/2021 11:57:44 04/05/20 19 Colposcopy completed [facility] 08/24/2021 13:23:30 08/28/19 16 Hysteroscopy completed Veronika Morales [facility] 06/20/2020 10:05:04 08/28/19 11 Laparoscopy completed Veronika Morales [facility] 06/20/2020 10:04:34 colonoscopy completed Nirmala Brady [facility]- [address], [place], [address], [facility] 09/19/2022 12:13:22 Imaging Results None recorded. [...] Prescrib ed Elsewher e: Yes [facility] odify By: trinidad wise DateTime : 11/22/19 18 01:30:00 PM Not [...] Prescrib ed Elsewher e: No Locat ion: [facility] odify By: amknancy [address] ncounter DateTime : 08/11/20 16 03:27:01 PM Not [...] Prescrib ed Elsewher e: Yes [facility] By: amkai [place] ncounter DateTime : 09/06/19 13 04:45:00 PM [...] Prescrib ed Elsewher e: No Locat ion: [facility] odify By: amkai [address] ncounter DateTime : 07/16/20 15 08:30:00 AM Not Available Not Available Not [...] ECZEMA. RUB IN GENTLY AND COMPLETE LY 09/19 completed Not Available Not Available Not [...] Updated DateTime 09/19/2022 120/74 mm[Hg] Nirmala Brady, [facility]- [address], [place], [address], [place] - [facility] 09/19/2022 12:12:05 Date Recorded Body weight Provider Name an d Address Organization Details Last Updated DateTime 09/19/2022 331382.14 g Annika Burris [facility] 09/19/2022 11:57:30 Date Recorded Body height Body mass index (BMI) Body weight Systolic And Diastolic Provider Name and Address Organization Details Last Updated DateTime 09/26/2023 162.56 cm 39.5 kg/m2 269817.25 g 133/88 mm[Hg] Olinda John [facility] 09/26/2023 11:29:30 Date Recorded Body height Body mass index (BMI) Body weight Systolic And Diastolic Provider Name and Address Organization Details Last Updated DateTime 10/09/2024 162.56 cm 27.7 kg/m2 77685.81 g 136/85 mm[Hg] Missy Archerton [facility] 10/09/2024 09:12:52 Date Recorded Systolic And Diastolic Provider Name and Address Organization Details Last Updated DateTime 07/15/2020 128/70 mm[Hg] Nirmala Brady, [facility]- [address], [place], [address], [facility] 07/15/2020 12:13:47 Date Recorded Body height Body mass index (BMI) Body weight Provider Name and Address Organization Details Last Updated DateTime 07/15/2020 162.56 cm 34.5 kg/m2 96281.07 ike Riddle [facility] 07/15/2020 11:06:55 Date Recorded Systolic And Diastolic Provider Name and Address Organization Details Last Updated DateTime 08/24/2021 122/80 mm[Hg] Nirmala Brady [facility]- [address], [place], [address], [facility] 08/24/2021 13:48:10 Date Recorded Body height Body mass index (BMI) Body weight Provider Name and Address Organization Details Last Updated DateTime 08/24/2021 162.56 cm 36.6 kg/m2 65720.17 g Annika Sandoval [facility] 08/24/2021 13:23:02 Social History Question Answer Notes LastModified by Organizat ion Details LastModified Time Tobacco Smoking Status Former Smoker Annika Fatuma [facility], [facility] 09/19/2022 11:57:45 Do You Have An Advance Directive? No Information n ot available 08/24/2021 Are You [...] Or The Highest Degree You Have Received? [id number] Information not available 08/24/2021 Are There Any [...] 08/23/2021 Are you able to care for yourself independently? 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 No Information not available 09/19/2022 What is your exercise level? Moderate Information not available 08/23/2021 Mental Status Question Answer Note LastModified by Organization D etails LastModified Time Do you feel stressed (tense, restless, nervous, or anxious, or unable to sleep at night)? [id number] Information not available 08/23/2021 Family History Relationship Description Onset Age of this Age Resolved Age Notes LastModified by Organization Details LastModified Time Maternal Grandfather Hypertensive disorder [email or web address] Not available 06/20 10:03:17 Maternal Grandmother Malignant tumor of breast [email or web address] Not available 06/20 10:03:26 Paternal Grandmother Malignant neoplasm of lung [email or web address] Not available 06/20 10:03:37 Medical History Condition [...] SNOMED-CT Code Diagnosis ICD10 Code Diagnosis Note [id number] [place] [address] [address] 07/15/2020 10:54:51 07/15/2020 13:53:59 Gynecologic examination 86612558 Z01.419 Suggested Calcium with Vitamin D 1200-1500m g daily. Patient advised to get an annual flu shot in the fall and she could obtain at [facility] or [facility] care clinic. Also to obtain TDap vaccinatio n [...] year Doing well no issues. IUD check [id number] Z30. 431 Strings visualized . Placed . Menopausal symptom 76214 002 N95.1 On estradiol 1mg daily with IUD mirena for uterine lining protection for hot flashes. [id number] Nirmala Brady , [facility] [address] [address] 08/24/2021 13:12:54 08/24/2021 13:58:57 Gynecologic examination 20464254 Z01.419 Suggested Calcium with Vitamin D 1200-1500m g daily. Patient advised to get an annual flu shot in the fall and she could obtain at [facility] or [facility] care clinic. Also to obtain TDap vaccinatio n [...] Colon screen UTD Mammo ordered Menopausal symptom 23921 002 N95.1 On estradiol 1mg daily with IUD mirena for uterine lining protection for hot flashes. [id number] Nirmala Brady , [facility] [address] [address] 09/19/2022 11:37:45 09/19/2022 12:22:59 Gynecologic examination 22889421 Z01.419 Z11.51 Suggested Calcium with Vitamin D 1200-1500m g daily. Patient advised to get an annual flu shot in the fall and she could obtain at [facility] or [facility] take care clinic. Also to obtain TDap vaccinatio n [...] c Screen discussedC olon Screen-PCP Dexa Screen -[facility]-PCPMa mmo- ordered A Mirena IUD prevents for up to 8 years, and also helps with heavy periods for up to 5 years in women who choose an IUD for control. Menopausal symptom 70291 002 N95.1 On estradiol 1mg daily with IUD mirena for uterine lining protection for hot flashes. Screening mammography 24 325253 Z12.31 [id number] STEPHIE Haynes-[facility] [address] [address] 09/26/2023 11:22:19 09/26/2023 12:03:11 Gynecologic examination 10265320 Z01.419 Z11.51 Suggested Calcium with Vitamin D 1200-1500m g daily. Patient advised to get an annual flu shot in the fall and she could obtain at [facility] or [facility]. Also to obtain TDap vaccinatio n if [...] netic Screen discussedC olon Screen-PCP Dexa Screen -[facility]-PCPMa mmo- ordered A Mirena IUD prevents for up to 8 years, and also helps with heavy periods for up to 5 years in women who choose an IUD for control. Screening mammography 24 565239 Z12 [id number] Justus Gillis MD [place] [address] [address] 10/09/2024 09:03:59 10/09/2024 09:29:11 Gynecologic examination 98475090 Z01.419 Annual gynecologi jess exam performed. Patient [...] STI testing - declined Screening mammography 24 451043 Z12.31 Menopausal symptom 49673 002 N95.1 Patient doing well on estradiol [...] 1 *SELF PAY* Halie Villanueva 10/06/2024 1 [employer] [id number] Yessy Villanueva [id number] Yessy Villanueva OBGyn Episode No OBEpisode recorded.
--- OUTSIDE RECORDS SUMMARY | 2025-03-25 10:18 | XMS_ITS | Data Portability ---
Author Organization [place] - 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 Name Role Phone ISRRAEL HESS Primary Care [...] By Organization Details Last Modified Time 11/22/2016 [id number] toenail fungus: care instructions [email or web address] Not available [...] neuroma abalettie Not available 11/23/2016 06:54:28 12/13/2016 [id number] toenail fungus: care instructions [email or web address] Not available [...] wk abalettie Not available 12/14/2016 09:39:01 12/27/2016 [id number] atif's neuroma: care instructions [email or web address] Not available [...] and Address Organization Details Recorded Time 7 77855 Neurolysis of neuroma completed [facility] 12/27/2016 17:10:54 7 69216 Neurolysis of neuroma completed [facility] 12/14/2016 09:38:07 7 60664- Est. 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 Procedure [...] Details Last Updated DateTime 11/22/2016 165.1 cm 98236.55 g 31.6 kg/m2 [facility]2016 17:38:43 Date Recorded Body height Provider Name an d Address Organization Details Last Updated DateTime 12/13/2016 165.1 cm [facility]/2016 18:05:56 Date Recorded Body height Body weight Body mass index (BMI) Provider Name and Address Organization Details Last Updated DateTime 12/27/2016 165.1 cm 61254.55 g 31.6 kg/m2 [facility] 12/[facility]/2016 17:02:11 Social History Question Answer Notes LastModified by School [employer] Details LastModified Time Tobacco Smoking Status Former Smoker [facility]/2016 17:35:07 Which Illicit Or Recreational Drugs Have You Used? None [email or web address] Information not available 11/22/2016 Quit Smoking How Many Years Ago? 14 Information not available 11/22/2016 Before Quit, How Many Ppd? .5 Information not available 11/22/2016 Before Quitting, Smoked How Many Years? 15 NGenTecchroeder Information not available 11/22/2016 Size Of Shoes 7.5 NGenTecchroeder Informa tion not available 11/22/2016 How Much Tobacco Do You Smoke? No Information not available 11/22/2016 What Types Of Sporting Activities Do You Participate In? Gym kkSkiipichroeder Information not available 11/22/2016 Sex: Unknown Functional Status Question Answer Note LastModified by School [employer] Details LastModified Time What is your level of alcohol consumption? 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 [id number] SURYA Kwan [address] [place] [address] 12/13/2016 18:05:38 12/13/2016 18:25:38 Plantar nerve lesion 101433556 G57.61 Pain in right foot 82964 17230 36228 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 648458146 B35.1 [id number] SURYA Kwan [address] [place] [address] 12/27/2016 17:00:35 12/27/2016 17:16:05 Plantar nerve lesion 281973215 G57.61 Health Concerns Section Related Observation LastModified by Organization Detai ls LastModified Time None Recorded Concern Status LastModified by Organization Details LastModified Time None Recorded Advance Directives Directive None Recorded Payers Insurance Date Sequence Insurance Name Policy Number Policy Muller Covered Member ID Muller Member ID Guarantor Name 12/26/2016 1 [id number]y Villanueva [id number] Yessy Villanueva OBGyn Episode No OBEpisode recorded.
== END 2025-03-25 10:06 | disposition home or self-care (01) ==
LOC: CHSIMG 10:08
PROVIDERS: PCP Nurse Practitioner; Visit Provider Student in an Organized Health Care Education/Training Program
DX: R92.2 Inconclusive mammogram (principal)
CPT/HCPCS: 76642; 77061; 77065; G0279